=== PATIENT | male | born 1935 | race Caucasian/White ===

== ENCOUNTER 2016-07-09 08:00 | Outpatient (CLI) | payer MEDICARE, BC | END 2016-07-09 08:01 | disposition home or self-care (01) | DX: I63.9 Cerebral infarction, unspecified (principal); Z79.01 Long term (current) use of anticoagulants ==

== ENCOUNTER 2016-07-29 20:14 | Outpatient (CLI) | payer MEDICARE, BC | END 2016-07-29 20:15 | disposition home or self-care (01) | DX: D64.9 Anemia, unspecified (principal); I10 Essential (primary) hypertension; R53.83 Other fatigue ==

== ENCOUNTER 2016-08-06 15:32 | Outpatient (CLI) | payer MEDICARE, BC | END 2016-08-06 15:33 | disposition home or self-care (01) | DX: I63.9 Cerebral infarction, unspecified (principal) ==

== ENCOUNTER 2016-08-22 13:00 | Outpatient (CLI) | payer MEDICARE, BC | END 2016-08-22 23:59 | disposition home or self-care (01) | DX: I63.9 Cerebral infarction, unspecified (principal); Z51.81 Encounter for therapeutic drug level monitoring ==

== ENCOUNTER 2016-09-23 13:16 | Outpatient (CLI) | payer MEDICARE, BC | END 2016-09-23 13:17 | disposition home or self-care (01) | DX: I63.9 Cerebral infarction, unspecified (principal); Z51.81 Encounter for therapeutic drug level monitoring ==

== ENCOUNTER 2016-10-15 11:24 | Outpatient (CLI) | payer MEDICARE, BC | END 2016-10-15 11:25 | disposition home or self-care (01) | DX: I63.9 Cerebral infarction, unspecified (principal); Z51.81 Encounter for therapeutic drug level monitoring ==

== ENCOUNTER 2016-11-12 08:00 | Outpatient (CLI) | payer MEDICARE, BC | END 2016-11-12 08:01 | disposition home or self-care (01) | LOC: LAB.N 08:00 | PROVIDERS: ATTEND Family Medicine | DX: I63.9 Cerebral infarction, unspecified (principal); Z51.81 Encounter for therapeutic drug level monitoring | CPT/HCPCS: 85610 ==

== ENCOUNTER 2016-12-10 08:00 | Outpatient (CLI) | payer MEDICARE, BC | END 2016-12-10 08:01 | disposition home or self-care (01) | LOC: LAB.N 08:00 | PROVIDERS: ATTEND Family Medicine | DX: I63.9 Cerebral infarction, unspecified (principal); Z51.81 Encounter for therapeutic drug level monitoring | CPT/HCPCS: 85610 ==

== ENCOUNTER 2016-12-24 09:47 | Outpatient (CLI) | payer MEDICARE, BC | END 2016-12-24 09:48 | disposition home or self-care (01) | LOC: LAB.N 09:47 | PROVIDERS: ATTEND Family Medicine | DX: I63.9 Cerebral infarction, unspecified (principal) | CPT/HCPCS: 85610 ==

== ENCOUNTER 2017-01-21 09:50 | Outpatient (CLI) | payer MEDICARE, BC | END 2017-01-21 09:51 | disposition home or self-care (01) | LOC: LAB.N 09:50 | PROVIDERS: ATTEND Family Medicine | DX: I63.9 Cerebral infarction, unspecified (principal); Z51.81 Encounter for therapeutic drug level monitoring | CPT/HCPCS: 85610 ==

== ENCOUNTER 2017-02-21 08:00 | Outpatient (CLI) | payer MEDICARE, BC | END 2017-02-21 08:01 | disposition home or self-care (01) | LOC: LAB.N 08:00 | PROVIDERS: ATTEND Family Medicine | DX: I63.9 Cerebral infarction, unspecified (principal); Z51.81 Encounter for therapeutic drug level monitoring | CPT/HCPCS: 85610 ==

== ENCOUNTER 2017-03-10 10:13 | Outpatient (CLI) | payer MEDICARE, BC | END 2017-03-10 10:14 | disposition home or self-care (01) | LOC: LAB.N 10:13 | PROVIDERS: ATTEND Family Medicine | DX: I63.9 Cerebral infarction, unspecified (principal); Z51.81 Encounter for therapeutic drug level monitoring | CPT/HCPCS: 85610 ==

== ENCOUNTER 2017-04-04 10:00 | Outpatient (CLI) | payer MEDICARE, BC | END 2017-04-04 10:01 | disposition home or self-care (01) | LOC: LAB.N 10:00 | PROVIDERS: ATTEND Family Medicine | DX: I63.9 Cerebral infarction, unspecified (principal); Z51.81 Encounter for therapeutic drug level monitoring | CPT/HCPCS: 85610 ==

== ENCOUNTER 2017-05-19 10:00 | Outpatient (CLI) | payer MEDICARE, BC | END 2017-05-19 10:01 | disposition home or self-care (01) | LOC: LAB.N 10:00 | PROVIDERS: ATTEND Family Medicine | DX: I63.9 Cerebral infarction, unspecified (principal); Z51.81 Encounter for therapeutic drug level monitoring | CPT/HCPCS: 85610 ==

== ENCOUNTER 2017-06-17 08:00 | Outpatient (CLI) | payer MEDICARE, BC | END 2017-06-17 08:01 | disposition home or self-care (01) | LOC: LAB.N 08:00 | PROVIDERS: ATTEND Family Medicine | DX: I63.9 Cerebral infarction, unspecified (principal); Z51.81 Encounter for therapeutic drug level monitoring | CPT/HCPCS: 85610 ==

== ENCOUNTER 2017-07-15 09:49 | Outpatient (CLI) | payer MEDICARE, BC ==
[2017-07-15 12:49] LABS: PT - PROTHROMBIN TIME 21.8 secs (9.9-12.6)
[2017-07-15 12:58] LABS: BASOPHILS % (AUTO) 0.5 %; EOSINOPHILS # (AUTO) 0.1 10^3/uL (0.0-0.7); EOSINOPHILS % (AUTO) 2.4 %; HGB - HEMOGLOBIN 11.1 g/dL (14.0-18.0); LYMPHOCYTES # (AUTO) 0.6 10^3/uL (1.5-3.5); LYMPHOCYTES % (AUTO) 19.3 %; MEAN CORPUSCULAR HGB CONC 35.3 g/dL (32.0-36.0); MEAN CORPUSCULAR VOLUME 107.5 fL (80.0-94.0); MEAN PLATELET VOLUME 9.5 fL (7.4-11.4); MONOCYTES # (AUTO) 0.6 10^3/uL (0.0-1.0); MONOCYTES % (AUTO) 19.9 %; NEUTROPHILS # (AUTO) 1.7 10^3/uL (1.5-6.6); NEUTROPHILS % (AUTO) 57.9 %; PLT - PLATELET COUNT 120 10^3/uL (130-450); RED BLOOD COUNT 2.92 10^6/uL (4.70-6.10); RED CELL DISTRIBUTION WIDTH 13.5 % (12.0-15.0)
[2017-07-15 13:29] LABS: ALBUMIN 4.2 g/dL (3.2-5.5); ALBUMIN/GLOBULIN RATIO 1.8 (1.0-2.2); ALKALINE PHOSPHATASE 39 IU/L (42-121); ALT ALANINE AMINOTRANSFERASE 17 IU/L (10-60); AST ASPARTATE AMINOTRANSFERASE 24 IU/L (10-42); BILIRUBIN,TOTAL 0.8 mg/dL (0.2-1.0); BUN - BLOOD UREA NITROGEN 17 mg/dL (6-20); CALCIUM 9.1 mg/dL (8.5-10.3); CARBON DIOXIDE - CO2 22 mmol/L (21-32); CHLORIDE 106 mmol/L (101-111); CHOLESTEROL 117 mg/dL; CREATININE 1.5 mg/dL (0.6-1.2); GFR - MDRD 45 (>89); GLUCOSE 101 mg/dL (70-100); HDL CHOLESTEROL 39 mg/dL; LDL CHOLESTEROL,CALCULATED 48 mg/dL; LDL/HDL RATIO 1.2 (<3.6); SODIUM 133 mmol/L (135-145); TOTAL PROTEIN 6.5 g/dL (6.7-8.2); VLDL CHOLESTEROL 30 mg/dL
== END 2017-07-15 09:50 | disposition home or self-care (01) ==
LOC: LAB.N 09:49
PROVIDERS: ATTEND Family Medicine
DX: Z00.00 Encounter for general adult medical examination without abnormal findings (principal); I10 Essential (primary) hypertension; Z51.81 Encounter for therapeutic drug level monitoring; Z12.5 Encounter for screening for malignant neoplasm of prostate
CPT/HCPCS: 36415; 80053; 80061; 84443; 85025; 85610; G0103; 83721; 84153

== ENCOUNTER 2017-08-14 09:47 | Outpatient (CLI) | payer MEDICARE, BC | END 2017-08-14 09:48 | disposition home or self-care (01) | LOC: LAB.N 09:47 | PROVIDERS: ATTEND Family Medicine | DX: I63.9 Cerebral infarction, unspecified (principal); Z51.81 Encounter for therapeutic drug level monitoring | CPT/HCPCS: 85610 ==

== ENCOUNTER 2017-08-25 08:00 | Outpatient (CLI) | payer MEDICARE, BC | END 2017-08-25 23:59 | disposition home or self-care (01) | LOC: LAB.N 08:00 | PROVIDERS: ATTEND Family Medicine | DX: I63.9 Cerebral infarction, unspecified (principal); Z51.81 Encounter for therapeutic drug level monitoring | CPT/HCPCS: 85610 ==

== ENCOUNTER 2017-09-17 10:25 | Outpatient (CLI) | payer MEDICARE, BC ==
[2017-09-17 12:52] LABS: ABNORMAL LYMPHS % (MANUAL) 0 %
[2017-09-17 13:08] LABS: BASOPHILS % (AUTO) 0.5 %; EOSINOPHILS % (AUTO) 2.5 %; HGB - HEMOGLOBIN 10.6 g/dL (14.0-18.0); LYMPHOCYTES % (AUTO) 23.2 %; MEAN CORPUSCULAR HEMOGLOBIN 37.6 pg (27.0-31.0); MEAN CORPUSCULAR HGB CONC 35.1 g/dL (32.0-36.0); MEAN CORPUSCULAR VOLUME 107.1 fL (80.0-94.0); MEAN PLATELET VOLUME 9.9 fL (7.4-11.4); MONOCYTES % (AUTO) 20.1 %; NEUTROPHILS % (AUTO) 53.7 %; PLT - PLATELET COUNT 115 10^3/uL (130-450); RED BLOOD COUNT 2.82 10^6/uL (4.70-6.10); RED CELL DISTRIBUTION WIDTH 12.8 % (12.0-15.0); WHITE BLOOD COUNT 2.9 x10^3/uL (4.8-10.8)
[2017-09-17 13:35] LABS: BAND NEUTROPHILS % (MANUAL) 2 %; EOSINOPHILS # (MANUAL) 0.1 10^3/uL (0-0.7); LYMPHOCYTES # (MANUAL) 0.6 10^3/uL (1.5-3.5); LYMPHOCYTES % (MANUAL) 21 %; MONOCYTES # (MANUAL) 0.5 10^3/uL (0.0-1.0); NEUTROPHILS # (MANUAL) 1.7 10^3/uL (1.5-6.6); NEUTROPHILS % (MANUAL) 57 %
[2017-09-17 13:36] LABS: DIFFERENTIAL COMMENT MANUAL DIFFERENTIAL; PLATELET ESTIMATE, MANUAL DECREASED (<130,000) (NORMAL); PLATELET MORPHOLOGY NORMAL APPEARANCE (NORMAL); RBC MORPHOLOGY (MULTIPLE) 1+ MACROCYTOSIS (NORMAL)
== END 2017-09-17 10:26 | disposition home or self-care (01) ==
LOC: LAB.N 10:25
PROVIDERS: ATTEND Nurse Practitioner Family
DX: R63.4 Abnormal weight loss (principal); Z51.81 Encounter for therapeutic drug level monitoring
CPT/HCPCS: 36415; 85025

== ENCOUNTER 2017-09-24 10:34 | Outpatient (CLI) | payer MEDICARE, BC | END 2017-09-24 10:35 | disposition home or self-care (01) | LOC: LAB.N 10:34 | PROVIDERS: ATTEND Family Medicine | DX: I63.9 Cerebral infarction, unspecified (principal); Z51.81 Encounter for therapeutic drug level monitoring | CPT/HCPCS: 85610 ==

== ENCOUNTER 2017-10-10 10:08 | Outpatient (CLI) | payer MEDICARE, BC | END 2017-10-10 10:09 | disposition home or self-care (01) | LOC: LAB.N 10:08 | PROVIDERS: ATTEND Family Medicine | DX: I63.9 Cerebral infarction, unspecified (principal); Z51.81 Encounter for therapeutic drug level monitoring | CPT/HCPCS: 85610 ==

== ENCOUNTER 2017-11-03 08:00 | Outpatient (CLI) | payer MEDICARE, BC | END 2017-11-03 08:01 | LOC: LAB.N 08:00 | PROVIDERS: ATTEND Family Medicine | DX: I63.9 Cerebral infarction, unspecified (principal); Z51.81 Encounter for therapeutic drug level monitoring; Z79.01 Long term (current) use of anticoagulants | CPT/HCPCS: 85610 ==

== ENCOUNTER 2017-12-01 08:00 | Outpatient (CLI) | payer MEDICARE, BC | END 2017-12-01 08:01 | disposition home or self-care (01) | LOC: LAB.N 08:00 | PROVIDERS: ATTEND Family Medicine | DX: I63.9 Cerebral infarction, unspecified (principal); Z51.81 Encounter for therapeutic drug level monitoring; Z79.01 Long term (current) use of anticoagulants | CPT/HCPCS: 85610 ==

== ENCOUNTER 2017-12-08 09:37 | Outpatient (CLI) | END 2017-12-08 09:38 | disposition home or self-care (01) ==

== ENCOUNTER 2017-12-29 10:10 | Outpatient (CLI) | payer MEDICARE, BC | END 2017-12-29 10:11 | disposition home or self-care (01) | LOC: LAB.N 10:10 | PROVIDERS: ATTEND Family Medicine | DX: I63.9 Cerebral infarction, unspecified (principal); Z51.81 Encounter for therapeutic drug level monitoring; Z79.01 Long term (current) use of anticoagulants | CPT/HCPCS: 85610 ==

== ENCOUNTER 2018-01-02 09:55 | Outpatient (CLI) | payer MEDICARE, BC ==
[2018-01-02 14:00] LABS: BASOPHILS % (AUTO) 0.7 %; EOSINOPHILS # (AUTO) 0.1 10^3/uL (0.0-0.7); EOSINOPHILS % (AUTO) 4.4 %; HGB - HEMOGLOBIN 9.7 g/dL (14.0-18.0); LYMPHOCYTES # (AUTO) 0.7 10^3/uL (1.5-3.5); LYMPHOCYTES % (AUTO) 23.4 %; MEAN CORPUSCULAR HEMOGLOBIN 37.6 pg (27.0-31.0); MEAN CORPUSCULAR HGB CONC 34.5 g/dL (32.0-36.0); MEAN CORPUSCULAR VOLUME 108.9 fL (80.0-94.0); MEAN PLATELET VOLUME 9.7 fL (7.4-11.4); MONOCYTES # (AUTO) 0.6 10^3/uL (0.0-1.0); MONOCYTES % (AUTO) 22.1 %; NEUTROPHILS # (AUTO) 1.4 10^3/uL (1.5-6.6); NEUTROPHILS % (AUTO) 49.4 %; PLT - PLATELET COUNT 124 10^3/uL (130-450); RED BLOOD COUNT 2.58 10^6/uL (4.70-6.10); WHITE BLOOD COUNT 2.8 x10^3/uL (4.8-10.8)
[2018-01-02 14:07] LABS: ALBUMIN 3.9 g/dL (3.2-5.5); ALBUMIN/GLOBULIN RATIO 1.5 (1.0-2.2); BILIRUBIN,TOTAL 0.9 mg/dL (0.2-1.0); CREATININE 3.1 mg/dL (0.6-1.2); TOTAL PROTEIN 6.5 g/dL (6.7-8.2)
[2018-01-02 14:31] LABS: PLATELET ESTIMATE, MANUAL DECREASED (<130,000) (NORMAL); PLATELET MORPHOLOGY RARE GIANT PLATELETS (NORMAL)
== END 2018-01-02 09:56 | disposition home or self-care (01) ==
LOC: LAB.N 09:55
DX: D72.819 Decreased white blood cell count, unspecified (principal)
CPT/HCPCS: 36415; 80053; 83615; 85025

== ENCOUNTER 2018-01-09 09:40 | Outpatient (CLI) | payer MEDICARE, BC ==
[2018-01-09 12:56] LABS: BASOPHILS % (AUTO) 0.8 %; EOSINOPHILS # (AUTO) 0.1 10^3/uL (0.0-0.7); EOSINOPHILS % (AUTO) 3.7 %; HGB - HEMOGLOBIN 9.5 g/dL (14.0-18.0); LYMPHOCYTES # (AUTO) 0.8 10^3/uL (1.5-3.5); MEAN CORPUSCULAR HEMOGLOBIN 37.6 pg (27.0-31.0); MEAN CORPUSCULAR HGB CONC 34.3 g/dL (32.0-36.0); MEAN CORPUSCULAR VOLUME 109.8 fL (80.0-94.0); MEAN PLATELET VOLUME 9.5 fL (7.4-11.4); MONOCYTES # (AUTO) 0.5 10^3/uL (0.0-1.0); MONOCYTES % (AUTO) 17.4 %; NEUTROPHILS # (AUTO) 1.6 10^3/uL (1.5-6.6); NEUTROPHILS % (AUTO) 52.1 %; PLT - PLATELET COUNT 111 10^3/uL (130-450); RED BLOOD COUNT 2.53 10^6/uL (4.70-6.10); RED CELL DISTRIBUTION WIDTH 13.8 % (12.0-15.0)
[2018-01-09 13:25] LABS: FERRITIN 627.9 ng/mL (23.9-336.2)
[2018-01-09 13:35] LABS: CREATININE 3.1 mg/dL (0.6-1.2)
== END 2018-01-09 09:41 | disposition home or self-care (01) ==
LOC: LAB.N 09:40
PROVIDERS: ATTEND Internal Medicine Hematology & Oncology
DX: D72.819 Decreased white blood cell count, unspecified (principal); D47.3 Essential (hemorrhagic) thrombocythemia; D53.9 Nutritional anemia, unspecified
CPT/HCPCS: 36415; 80048; 82607; 82728; 83540; 84466; 85025

== ENCOUNTER 2018-01-26 09:51 | Outpatient (CLI) | payer MEDICARE, BC | END 2018-01-26 09:52 | disposition home or self-care (01) | LOC: LAB.N 09:51 | PROVIDERS: ATTEND Family Medicine | DX: I63.9 Cerebral infarction, unspecified (principal); Z51.81 Encounter for therapeutic drug level monitoring; Z79.01 Long term (current) use of anticoagulants | CPT/HCPCS: 85610 ==

== ENCOUNTER → 2018-02-12 | Outpatient (CLI) | payer MEDICARE, BC | LOC: LAB.N 08:00 | PROVIDERS: ATTEND Family Medicine | DX: Z53.9 Procedure and treatment not carried out, unspecified reason (principal) | CPT/HCPCS: 85610 ==

== ENCOUNTER 2018-02-13 10:45 | Outpatient (CLI) | payer MEDICARE, BC ==
[2018-02-13 12:28] LABS: BASOPHILS % (AUTO) 0.7 %; EOSINOPHILS # (AUTO) 0.1 10^3/uL (0.0-0.7); EOSINOPHILS % (AUTO) 3.3 %; HGB - HEMOGLOBIN 10.1 g/dL (14.0-18.0); LYMPHOCYTES # (AUTO) 0.7 10^3/uL (1.5-3.5); LYMPHOCYTES % (AUTO) 24.4 %; MEAN CORPUSCULAR HEMOGLOBIN 38.6 pg (27.0-31.0); MEAN CORPUSCULAR HGB CONC 35.3 g/dL (32.0-36.0); MEAN CORPUSCULAR VOLUME 109.5 fL (80.0-94.0); MEAN PLATELET VOLUME 9.5 fL (7.4-11.4); MONOCYTES # (AUTO) 0.6 10^3/uL (0.0-1.0); MONOCYTES % (AUTO) 20.4 %; NEUTROPHILS # (AUTO) 1.6 10^3/uL (1.5-6.6); NEUTROPHILS % (AUTO) 51.2 %; PLT - PLATELET COUNT 130 10^3/uL (130-450); RED BLOOD COUNT 2.61 10^6/uL (4.70-6.10); RED CELL DISTRIBUTION WIDTH 13.8 % (12.0-15.0)
== END 2018-02-13 10:46 | disposition home or self-care (01) ==
LOC: LAB.N 10:45
PROVIDERS: ATTEND Internal Medicine Hematology & Oncology
DX: D53.9 Nutritional anemia, unspecified (principal); D72.819 Decreased white blood cell count, unspecified; D47.3 Essential (hemorrhagic) thrombocythemia
CPT/HCPCS: 36415; 85025

== ENCOUNTER 2018-03-02 09:51 | Outpatient (CLI) | payer MEDICARE, BC | END 2018-03-02 09:52 | disposition home or self-care (01) | LOC: LAB.N 09:51 | PROVIDERS: ATTEND Family Medicine | DX: I63.9 Cerebral infarction, unspecified (principal); Z51.81 Encounter for therapeutic drug level monitoring; Z79.01 Long term (current) use of anticoagulants | CPT/HCPCS: 85610 ==

== ENCOUNTER 2018-03-05 08:00 | Outpatient (CLI) | payer MEDICARE, BC | END 2018-03-05 08:01 | disposition home or self-care (01) | LOC: LAB.N 08:00 | PROVIDERS: ATTEND Family Medicine | DX: Z51.81 Encounter for therapeutic drug level monitoring (principal); Z79.01 Long term (current) use of anticoagulants | CPT/HCPCS: 85610 ==

== ENCOUNTER 2018-03-16 08:00 | Outpatient (CLI) | payer MEDICARE, BC ==
[2018-03-16 19:09] LABS: BASOPHILS % (AUTO) 0.8 %; EOSINOPHILS # (AUTO) 0.1 10^3/uL (0.0-0.7); EOSINOPHILS % (AUTO) 3.5 %; HGB - HEMOGLOBIN 9.9 g/dL (14.0-18.0); LYMPHOCYTES # (AUTO) 0.5 10^3/uL (1.5-3.5); LYMPHOCYTES % (AUTO) 16.2 %; MEAN CORPUSCULAR HEMOGLOBIN 38.4 pg (27.0-31.0); MEAN CORPUSCULAR HGB CONC 33.9 g/dL (32.0-36.0); MEAN CORPUSCULAR VOLUME 113.5 fL (80.0-94.0); MEAN PLATELET VOLUME 10.3 fL (7.4-11.4); MONOCYTES # (AUTO) 0.5 10^3/uL (0.0-1.0); NEUTROPHILS % (AUTO) 62.5 %; PLT - PLATELET COUNT 118 10^3/uL (130-450); RED BLOOD COUNT 2.59 10^6/uL (4.70-6.10); RED CELL DISTRIBUTION WIDTH 15.4 % (12.0-15.0); WHITE BLOOD COUNT 3.1 x10^3/uL (4.8-10.8)
[2018-03-16 19:21] LABS: CALCIUM 9.3 mg/dL (8.5-10.3); CREATININE 3.2 mg/dL (0.6-1.2)
[2018-03-16 19:38] LABS: PLATELET ESTIMATE, MANUAL DECREASED (<130,000) (NORMAL); PLATELET MORPHOLOGY NORMAL APPEARANCE (NORMAL); RBC MORPHOLOGY (MULTIPLE) 4+ MACROCYTOSIS (NORMAL)
[2018-03-16 19:51] LABS: CREATININE,URINE 182.2 mg/dL; PROTEIN/CREATININE RATIO,URINE 0.1 (<=0.2)
== END 2018-03-16 08:01 | disposition home or self-care (01) ==
LOC: LAB.N 08:00
PROVIDERS: ATTEND Internal Medicine Nephrology
DX: D72.819 Decreased white blood cell count, unspecified (principal); D47.3 Essential (hemorrhagic) thrombocythemia; D53.9 Nutritional anemia, unspecified; N05.9 Unspecified nephritic syndrome with unspecified morphologic changes; R80.9 Proteinuria, unspecified
CPT/HCPCS: 36415; 80048; 82570; 84156; 85025

== ENCOUNTER 2018-03-19 14:15 | Outpatient (CLI) | payer MEDICARE, BC | END 2018-03-19 14:16 | disposition short-term general hospital (02) | LOC: EMS 14:15 | PROVIDERS: ATTEND Surgery | DX: R53.1 Weakness (principal); R06.00 Dyspnea, unspecified | CPT/HCPCS: A0425; A0427 ==

== ENCOUNTER 2018-04-02 00:47 | Emergency (ER) | payer MEDICARE, BC ==
--- NOTE | 2018-04-02 01:08 | ED Physician Documentation ---
PD HPI ABD PAIN - Stated complaint Stated Complaint: ABD PX - Chief complaint Chief Complaint: Abd Pain - History obtained from History obtained from: Patient - History of Present Illness Timing - onset: How many hours ago (5-6), Today Timing - duration: Hours Timing - details: Gradual onset (shortly after eating dinner, had onset of upper abd pain and nausea. Vomited couple times. Still with upper abd pain and cramping.), Still present, Waxing and waning Quality: Cramping, Aching, Pain Location: Epigastric Radiation: No: Chest, Lower back, Left shoulder Improved by: Laying still Worsened by: Palpation. No: Moving, Breathing Associated symptoms: Nausea. No: Fever, Vomiting, Diarrhea, Dysuria Similar symptoms before: Diagnosis (cholecystitis acute with ductal blockage, seen in [facility].) Recently seen: Admitted, Surgery (had biliary stent placed about 10 days ago in [facility]. He says he was there 5-6 days and discharged 6 days ago with biliary stent and was doing okay.), Other (he states he is not on blood thinners since recent admission.) Review of Systems Constitutional: denies: Fever, Chills, Myalgias Nose: denies: Rhinorrhea / runny nose, Congestion Throat: denies: Sore throat Cardiac: denies: Chest pain / pressure, Palpitations Respiratory: denies: Dyspnea, Cough GI: reports: Abdominal Pain, Nausea, Diarrhea (loose stools after hospitalization, but improving). 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) Neurologic: denies: Altered mental status, Headache PD PAST MEDICAL HISTORY - Past Medical History Cardiovascular: Hypertension Respiratory: None Endocrine/Autoimmune: None GI: Colon polyps, Cholelithiasis : Nocturia HEENT: Chronic hearing loss Psych: None Musculoskeletal: Osteoarthritis, Chronic back pain, Other Derm: None - Past Surgical History General: Appendectomy, Other (biliary duct stent for ductal blockage about 10 days ago) Ortho: Carpal Tunnel surgery Neuro: Other HEENT: Cataracts, Tonsil/Adenoidectomy - Present Medications Home Medications: Ambulatory Orders Medication Instructions Recorded Confirmed Doxazosin [Cardura] 4 mg PO DAILY 10/05/15 10/05/15 Lisinopril 40 mg PO BID 10/05/15 10/05/15 Metoprolol Tartrate 100 mg PO BID 10/05/15 10/05/15 Warfarin [Coumadin] 2.5 mg PO 1400 10/05/15 10/05/15 Warfarin [Coumadin] 5 mg PO 1400 10/05/15 10/05/15 amLODIPine [Norvasc] 10 mg PO DAILY 10/05/15 10/05/15 Famotidine [Pepcid] 20 mg PO ONCE #30 tablet 04/02/18 Lidocaine Viscous 2% [Xylocaine 5 ml PO Q4H PRN #1 bottle 04/02/18 Viscous 2%] Ondansetron HCl [Zofran] 4 mg PO Q6H PRN #20 tablet 04/02/18 - Allergies Allergies/Adverse Reactions: Allergies Allergy/AdvReac Type Severity Reaction Status Date / Time Penicillins AdvReac Nausea Verified 04/02/18 01:03 PD ED PE NORMAL - Vitals Vital signs reviewed: Yes - General General: Alert and oriented X 3, Well developed/nourished, Other (appears uncomfortable) - HEENT HEENT: PERRL (nonicteric), Moist mucous membranes, Pharynx benign - Neck Neck: Supple, no meningeal sign, No adenopathy - Cardiac Cardiac: RRR, No murmur - Respiratory Respiratory: Clear bilaterally - Abdomen Abdomen: Normal bowel sounds, Soft, Non distended, No organomegaly, Other (tender without percussion nor rebound in epigastric area. ) - Male Male : Deferred - Rectal Rectal: Other (soft stool; guiac negative) - Back Back: No CVA TTP - Derm Derm: Normal color, Warm and dry - Extremities Extremities: No deformity, Normal ROM s pain, No calf tenderness / cord, Other (1+ edema in both legs, slightly more on right) - Neuro Neuro: Alert and oriented X 3, No motor deficit, Normal speech Results - Vitals Vitals: Vital Signs - 24 hr 04/02/18 04/02/18 00:50 01:25 Temperature 36.3 C L Heart Rate 96 86 Respiratory 17 20 Rate Blood Pressure 149/71 H 132/57 H O2 Saturation 100 100 Oxygen O2 Source Room air - EKG (time done) 01:05 Rate: Rate (enter#) (84) Rhythm: NSR (baseline artifact so machine reads atrial fib, but I can see P waves in some leads)) Intervals: Normal ME QRS: Normal Ischemia: Normal ST segments. No: ST elevation c/w ischemia, ST depression Computer interpretation: Disagree with computer - Labs Labs: Laboratory Tests 04/02/18 04/02/18 01:40 01:40 WBC 4.0 L RBC 2.09 L Hgb 7.1 L Hct 20.2 L MCV 96.6 H MCH 33.8 H MCHC 35.0 RDW 18.8 H Plt Count 129 L MPV 9.0 Neut # (Auto) 3.0 Lymph # (Auto) 0.3 L Brule # (Auto) 0.6 Eos # (Auto) 0.1 Baso # (Auto) 0.0 Absolute Nucleated RBC 0.01 Nucleated RBC % 0.4 Sodium 136 Potassium 4.0 Chloride 106 Carbon Dioxide 22 Anion Gap 8.0 BUN 20 Creatinine 2.0 H Estimated GFR (MDRD) 32 L Glucose 129 H Calcium 9.0 Total Bilirubin 1.9 H AST 32 ALT 41 Alkaline Phosphatase 92 Total Protein 6.0 L Albumin 3.5 Globulin 2.5 Albumin/Globulin Ratio 1.4 Lipase 70 H - Rads (name of study) abd CT Radiology: Prelim report reviewed (Common bile duct stent appears patent. There is some inflammation of the gallbladder with stones. No other acute abnormality noted. There is a small infrarenal aortic aneurysm at 3 cm.) PD MEDICAL DECISION MAKING - ED course Complexity details: reviewed results, re-evaluated patient (feeling much better and pain is gone at this time. Recheck abd not tender. ), considered differential, d/w patient Departure - Departure Disposition: 01 Home, Self Care Clinical Impression: Abdominal pain Qualifiers: Abdominal location: epigastric Qualified Code(s): R10.13 - Epigastric pain Condition: Stable Record reviewed to determine appropriate education?: Yes Instructions: ED Abdominal Pain Unkn Cause Follow-Up: Bulmaro Kaiser MD [Primary Care Provider] - Prescriptions: Famotidine [Pepcid] 20 mg PO ONCE #30 tablet Lidocaine Viscous 2% [Xylocaine Viscous 2%] 5 ml PO Q4H PRN #1 bottle PRN Reason: Pain Ondansetron HCl [Zofran] 4 mg PO Q6H PRN #20 tablet PRN Reason: Nausea / Vomiting Comments: Your common bile duct stent appears to be draining well. There is some inflammation of the gallbladder which would be consistent with the prior recent history. There is no signs of pancreas or liver abnormality on the CT scan or blood tests. You are anemic on blood test. I presume your pain today was from stomach irritation (gastritis). I would have you take some acid reducing medicine famotidine daily for the next 2-3 weeks. Acutely for pain you can use lidocaine orally with some antacid as needed. Ondansetron if needed for nausea. Follow-up with your primary care later today as planned. Use the hydrocodone tablets every 4-6 hours if needed for pain.
[2018-04-02] MEDS ORDERED: MORPHINE 10 MG/ML VIAL IVP STA (01:32)
[2018-04-02] MEDS ORDERED: ONDANSETRON 4 MG/2 ML VIAL IVP STA (01:32)
[2018-04-02] MEDS ORDERED: SODIUM CHLORIDE 0.9% 1,000 ML IV ONE (01:32)
[2018-04-02] MEDS ORDERED: KETOROLAC 15 MG/ML VIAL IVP STA (01:33)
[2018-04-02] MEDS ORDERED: MAG HYDROX/AL HYDROX/SIMETH 30 ML UDC PO STA (01:33)
[2018-04-02] MEDS ORDERED: LIDOCAINE VISCOUS 2% 15 ML UDC MM STA (01:33)
[2018-04-02 01:51] LABS: BASOPHILS % (AUTO) 0.7 %; EOSINOPHILS # (AUTO) 0.1 10^3/uL (0.0-0.7); EOSINOPHILS % (AUTO) 1.5 %; HGB - HEMOGLOBIN 7.1 g/dL (14.0-18.0); LYMPHOCYTES # (AUTO) 0.3 10^3/uL (1.5-3.5); LYMPHOCYTES % (AUTO) 8.1 %; MEAN CORPUSCULAR HEMOGLOBIN 33.8 pg (27.0-31.0); MEAN CORPUSCULAR VOLUME 96.6 fL (80.0-94.0); MONOCYTES # (AUTO) 0.6 10^3/uL (0.0-1.0); MONOCYTES % (AUTO) 14.9 %; NEUTROPHILS % (AUTO) 74.8 %; PLT - PLATELET COUNT 129 10^3/uL (130-450); RED BLOOD COUNT 2.09 10^6/uL (4.70-6.10); RED CELL DISTRIBUTION WIDTH 18.8 % (12.0-15.0)
[2018-04-02 02:03] LABS: ALBUMIN 3.5 g/dL (3.2-5.5); ALBUMIN/GLOBULIN RATIO 1.4 (1.0-2.2); BILIRUBIN,TOTAL 1.9 mg/dL (0.2-1.0)
[2018-04-02] MEDS ORDERED: IOPAMIDOL-300 100 ML VIAL ONE (03:10)
[2018-04-02] MEDS ORDERED: IOPAMIDOL-300 100 ML VIAL IVP ONE (03:16)
--- NOTE | 2018-04-02 03:34 | CT Report ---
Reason: upper abd pain tonight; CBD stent about 10 days ag Procedure Date: 04/02/2018 Accession Number: [id number] / [id number] Procedure: CT - Abdomen/Pelvis W/ CPT Code: FULL RESULT: EXAM: CT ABDOMEN AND PELVIS EXAM DATE: 04/02/2018 03:22 AM. CLINICAL HISTORY: Upper abdominal pain tonight; common bile duct stent about 10 days ago. COMPARISONS: None. TECHNIQUE: Routine helical CT imaging was performed through the abdomen and pelvis. IV contrast: Yes. Enteric contrast: No. Reconstructions: Coronal and sagittal. In accordance with CT protocol optimization, one or more of the following dose reduction techniques were utilized for this exam: automated exposure control, adjustment of mA and/or KV based on patient size, or use of iterative reconstructive technique. FINDINGS: Lung Bases: Coronary calcifications. Liver: Small probable cysts. No suspicious masses. Gallbladder/Bile Ducts: Distended gallbladder with multiple stones in the neck and cystic duct. Mild gallbladder wall thickening and pericholecystic inflammation. Common bile duct stent in place with pneumobilia, consistent with stent patency. Spleen: Mildly to moderately enlarged with scattered tiny hypodense foci, statistically benign. Pancreas: Unremarkable. Adrenal Glands: Unremarkable. Kidneys: Right renal cyst. No suspicious masses or hydronephrosis. Peritoneal Cavity/Bowel: No bowel obstruction or inflammatory process seen. No free air or significant free fluid. No masses or adenopathy. The appendix is normal. No excessive stool burden. Pelvic Organs: Bladder and prostate appear unremarkable. Vasculature: Moderate atherosclerotic disease of the aorta and branches. Mild aneurysmal dilatation of the infrarenal abdominal aorta up to 30 x 30 mm. Bones: No significant abnormality. Other: Small fat-containing inguinal hernias without apparent complication. IMPRESSION: 1. Acute cholecystitis. 2. Common bile duct stent patency. 3. Mild to moderate splenomegaly. 4. Moderate atherosclerotic disease of the aorta and branches. 5. Mild aneurysmal dilatation of the infrarenal abdominal aorta up to 30 x 30 mm. RADIA
[2018-04-02] MEDS ORDERED: ONDANSETRON ODT 4 MG Prepack 2 TL PRN (04:02)
[2018-04-02] MEDS ORDERED: HYDROcod/ACET 5/325 Prepack 4 PO STA (04:02)
[2018-04-02 05:22] VITALS: BP 119/59
[2018-04-05] MEDS ORDERED: SODIUM CHLORIDE FLUSH 0.9% 10 ML SYRINGE ONE (15:26)
== END 2018-04-02 04:42 | disposition home or self-care (01) ==
LOC: ED 00:47
DX: R10.13 Epigastric pain (principal); R11.2 Nausea with vomiting, unspecified; I48.91 Unspecified atrial fibrillation; I10 Essential (primary) hypertension; K80.10 Calculus of gallbladder with chronic cholecystitis without obstruction; Z96.89 Presence of other specified functional implants; Z79.01 Long term (current) use of anticoagulants
CPT/HCPCS: 36415; 74177; 80053; 83690; 85025; 93005; 96374; 96375; 99283; A9270; Q9967

== ENCOUNTER 2018-04-05 09:35 | Outpatient (CLI) | payer MEDICARE, BC | END 2018-04-05 09:36 | disposition critical access hospital (66) | LOC: EMS 09:35 | PROVIDERS: ATTEND Surgery | DX: R53.1 Weakness (principal); R25.1 Tremor, unspecified; R50.9 Fever, unspecified | CPT/HCPCS: A0425; A0429 ==

== ENCOUNTER 2018-04-05 10:00 | Inpatient (IN) | payer MEDICARE, BC ==
[2018-04-05] MEDS ORDERED: SODIUM CHLORIDE 0.9% 1,000 ML IV ONE ×3 (10:12→23:35)
[2018-04-05] MEDS ORDERED: ERTAPENEM 1 GM in SODIUM CHLORIDE 0.9% MINIBAG 100 ML IV STA (10:16)
[2018-04-05] MEDS ORDERED: metroNIDAZOLE 500 MG/100 ML 500 MG/100 ML BAG IV ONE (10:16)
--- NOTE | 2018-04-05 10:19 | ED Physician Documentation ---
History of Present Illness - Stated complaint Stated Complaint: FEVER - Chief complaint Chief Complaint: Fever - Additonal information Additional information: hx from pt 82 male s/p appy per EMS report pt recently dx with pancreatic cancer also paperwork indicates new dx CHF had biliary stent placed at Prov to ED today for fever and shaking chills since 7 AM nausea no vomit or diarrhea denies HER CP AP any pain at all no urinary sx profoundly weak Review of Systems Constitutional: reports: Fever, Chills, Fatigue, Sweats Cardiac: denies: Chest pain / pressure Respiratory: denies: Dyspnea, Cough GI: reports: Nausea. denies: Abdominal Pain, Vomiting, Diarrhea : denies: Dysuria, Hematuria Neurologic: reports: Generalized weakness Endocrine: reports: Easy bruising / bleeding Immunocompromised: denies: Immunocompromised PD PAST MEDICAL HISTORY - Past Medical History Cardiovascular: Hypertension Respiratory: None Endocrine/Autoimmune: None GI: Colon polyps, Cholelithiasis : Nocturia HEENT: Chronic hearing loss Psych: None Musculoskeletal: Osteoarthritis, Chronic back pain, Other Derm: None - Past Surgical History General: Appendectomy, Other (biliary duct stent for ductal blockage about 10 days ago) Ortho: Carpal Tunnel surgery Neuro: Other HEENT: Cataracts, Tonsil/Adenoidectomy - Present Medications Home Medications: Ambulatory Orders Medication Instructions Recorded Confirmed Metoprolol Tartrate 100 mg PO BID 10/05/15 04/05/18 Ondansetron HCl [Zofran] 4 mg PO Q6H PRN #20 tablet 04/02/18 Hydrocodone/Acetaminophen 04/05/18 [Hydrocodone-Acetamin 5-325 mg] Pantoprazole Sodium [Protonix] 40 mg PO BID 04/05/18 04/05/18 Tamsulosin HCl [Flomax] 0.4 mg PO DAILY 04/05/18 04/05/18 - Allergies Allergies/Adverse Reactions: Allergies Allergy/AdvReac Type Severity Reaction Status Date / Time Penicillins AdvReac Nausea Verified 04/05/18 10:10 PD ED PE NORMAL - Vitals Vital signs reviewed: Yes (tachy borderline BP) - General General: Alert and oriented X 3, Other (pale weak, 2-3 person assist to stand an d transfer) - HEENT HEENT: PERRL - Neck Neck: Supple, no meningeal sign - Cardiac Cardiac: RRR (tachy) - Respiratory Respiratory: No respiratory distress, Clear bilaterally - Abdomen Abdomen: Normal bowel sounds, Other (distended, TTP RUQ s peritoneal sx) - Derm Derm: Other (pale but not jaundiced, no open wounds seen) - Neuro Neuro: Alert and oriented X 3, Other (all over weak) Results - Vitals Vitals: Vital Signs - 24 hr 04/05/18 04/05/18 04/05/18 10:06 10:30 11:00 Temperature 37.6 C H Heart Rate 130 H 126 H 120 H Respiratory 18 25 H 21 Rate Blood Pressure 108/44 L 108/44 L 91/45 L O2 Saturation 100 99 97 04/05/18 04/05/18 04/05/18 12:51 13:01 13:06 Temperature 37.4 C 37.1 C Heart Rate 114 H 113 H 112 H Respiratory 28 H 28 H Rate Blood Pressure 72/60 L 75/49 L 80/50 L O2 Saturation 96 04/05/18 04/05/18 04/05/18 13:12 13:13 13:17 Temperature 98.1 C H 98.1 C H Heart Rate 112 H 112 H 113 H Respiratory 27 H 27 H 27 H Rate Blood Pressure 81/51 L 81/51 L 80/49 L O2 Saturation 100 04/05/18 04/05/18 04/05/18 13:35 13:44 14:00 Temperature 98.6 C H 98.5 C H Heart Rate 115 H 113 H 118 H Respiratory 25 H 24 26 H Rate Blood Pressure 79/53 L 88/53 L 91/55 L O2 Saturation 100 04/05/18 14:13 Temperature Heart Rate 118 H Respiratory 26 H Rate Blood Pressure 91/53 L O2 Saturation 99 Oxygen O2 Source Room air - Labs Labs: Laboratory Tests 04/05/18 04/05/18 04/05/18 10:24 10:24 10:24 WBC 3.5 L RBC 2.06 L Hgb 6.9 L* Hct 20.3 L MCV 98.4 H MCH 33.2 H MCHC 33.8 RDW 19.0 H Plt Count 115 L MPV 10.1 Neut # (Auto) 3.4 Lymph # (Auto) 0.1 L Victoria # (Auto) 0.1 Eos # (Auto) 0.0 Baso # (Auto) 0.0 Absolute Nucleated RBC 0.02 Nucleated RBC % 0.5 Manual Slide Review Indicated Platelet Morphology RARE GIANT PLATELETS RBC Morph Micro Appear 3+ ANISOCYTOSIS PT INR Sodium 135 Potassium 4.5 Chloride 104 Carbon Dioxide 16 L Anion Gap 15.0 H BUN 36 H Creatinine 3.3 H Estimated GFR (MDRD) 18 L Glucose 139 H Lactic Acid 5.5 H* Calcium 9.1 Total Bilirubin 2.3 H AST 53 H ALT 29 Alkaline Phosphatase 144 H Total Protein 6.4 L Albumin 2.9 L Globulin 3.5 Albumin/Globulin Ratio 0.8 L Lipase 57 H Urine Color Urine Clarity Urine pH Ur Specific [place] Urine Protein Urine Glucose (UA) Urine Ketones Urine Occult Blood Urine Nitrite Urine Bilirubin Urine Urobilinogen Ur Leukocyte Esterase Urine RBC Urine WBC Ur Squamous Epith Cells Urine Bacteria Urine Casts Ur Microscopic Review Urine Culture Comments Blood Type Blood Type Recheck Antibody Screen Crossmatch IS Only 04/05/18 04/05/18 04/05/18 10:44 11:38 11:40 WBC RBC Hgb Hct MCV MCH MCHC RDW Plt Count MPV Neut # (Auto) Lymph # (Auto) Victoria # (Auto) Eos # (Auto) Baso # (Auto) Absolute Nucleated RBC Nucleated RBC % Manual Slide Review Platelet Morphology RBC Morph Micro Appear PT 16.4 H INR 1.5 H Sodium Potassium Chloride Carbon Dioxide Anion Gap BUN Creatinine Estimated GFR (MDRD) Glucose Lactic Acid Calcium Total Bilirubin AST ALT Alkaline Phosphatase Total Protein Albumin Globulin Albumin/Globulin Ratio Lipase Urine Color DARK YELLOW Urine Clarity HAZY Urine pH 5.0 Ur Specific [place] 1.025 Urine Protein 30 H Urine Glucose (UA) NEGATIVE Urine Ketones NEGATIVE Urine Occult Blood NEGATIVE Urine Nitrite NEGATIVE Urine Bilirubin NEGATIVE Urine Urobilinogen 1 (NORMAL) Ur Leukocyte Esterase TRACE H Urine RBC 0-5 Urine WBC 6-10 H Ur Squamous Epith Cells FEW Squamous Urine Bacteria Few Urine Casts 6-10 Granular Casts Ur Microscopic Review INDICATED Urine Culture Comments INDICATED Blood Type A POSITIVE Blood Type Recheck Antibody Screen NEGATIVE Crossmatch IS Only See Detail 04/05/18 04/05/18 04/05/18 11:40 13:02 13:58 WBC RBC Hgb Hct MCV MCH MCHC RDW Plt Count MPV Neut # (Auto) Lymph # (Auto) Victoria # (Auto) Eos # (Auto) Baso # (Auto) Absolute Nucleated RBC Nucleated RBC % Manual Slide Review Platelet Morphology RBC Morph Micro Appear PT INR Sodium Potassium Chloride Carbon Dioxide Anion Gap BUN Creatinine Estimated GFR (MDRD) Glucose Lactic Acid 2.8 H Calcium Total Bilirubin AST ALT Alkaline Phosphatase Total Protein Albumin Globulin Albumin/Globulin Ratio Lipase Urine Color Urine Clarity Urine pH Ur Specific [place] Urine Protein Urine Glucose (UA) Urine Ketones Urine Occult Blood Urine Nitrite Urine Bilirubin Urine Urobilinogen Ur Leukocyte Esterase Urine RBC Urine WBC Ur Squamous Epith Cells Urine Bacteria Urine Casts Ur Microscopic Review Urine Culture Comments Blood Type Cancelled Blood Type Recheck A POSITIVE Antibody Screen Cancelled Crossmatch IS Only See Detail - Rads (name of study) CXR Radiology: See rad report (hypovent with R basilar consolidation) CTAP Radiology: See rad report (acute yunior (cholelithiasis and amrked GB distension with pericholecystic edema racking to RLQ), CBD stent and pneumobilia, diverticulosis no -itis, splenomegaly) PD MEDICAL DECISION MAKING - ED course ED course: presentation c/w sepsis 2/2 cholecystitis/cholangitis pt given broad spectrum GI ab and 1 L NS (not 30cc/L given hx of CHF and not being hypotensive) anemia noted 2 days ago as well - pt had rectal exam and was occult blood neg CT confirms acute yunior requested records from [facility] upon pt arrival at 1010 AM - received records from [facility] at 1140 - pt had an angiodysplasia of the stomach and duodenum dx and txed by EGD 03/20 with bleeding and subsequent anemia, he had hgb 6 was transfused, coumadin was reversed and stopped he also had a mass in head of the pancreas and FNB was performed and 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, a sphincheterectomy was done and stent placed per dc summary dc INR was 1.3, hct 21, cr 1.9, bili 2.5, also pt was made DNR - we called and POLST available to fax to us - daughter in law states it is at home on the fridge and does say DNR despite hct approx same as dc from prov and IVF and that pt was given broad spectrum ab pt is decompensating and his pressure is dropping two large bore IV more fluids transfused when sons arrive will need to discuss plan of attack and if going to pursue pressors and aggressive intervention then will place central line pt slightly improved with above interventions family daughter in law has arrived she states he does not have CHF that she is aware of despite it being in his home health chart so giving more aggressive fluids I explained pt/family have 3 options 1) transfer to solely comfort care 2) IV antibiotics fluids and blood transfusions which can be done at [facility] 3) transfer to [facility] for possible surgical intervention such as another therapeutic EGD for angiodysplasia and yunior or percut GB tx by IR she is trying to get a hold of pts sons to decide for now she would like him to get antibiotics and fluids and blood and not be transferred I have explained to her that he is critically ill and may today and that family should come as soon as possible kristofer valles hospitalist at 1300 spoke to hospitalist at 1410 will admit daughter and pt clearly understand no surgical interventional procedures are available for this pt at [facility] - just fluids blood and antibiotics - Sepsis Event Current Stage of Sepsis: Septic shock Persistent Hypotension: MAP less than 65 mmHg Possible source of Sepsis: GI tract/intra-abdominal Mental/Cognitive Status: Confused Reason for not giving 30ml/kg crystalloid fluids: Patient has heart failure (turns out to be inaccurate so gave more fluids, also blood for acute blood loss) Departure - Departure Disposition: 66 [facility] DC/Xfer Clinical Impression: Septic shock Condition: Critical
[2018-04-05] MEDS ORDERED: SODIUM CHLORIDE 0.9% MINIBAG 100 ML IV ONE (10:27)
[2018-04-05 10:42] LABS: BASOPHILS % (AUTO) 0.4 %; LYMPHOCYTES # (AUTO) 0.1 10^3/uL (1.5-3.5); LYMPHOCYTES % (AUTO) 2.5 %; MEAN CORPUSCULAR HEMOGLOBIN 33.2 pg (27.0-31.0); MEAN CORPUSCULAR HGB CONC 33.8 g/dL (32.0-36.0); MEAN CORPUSCULAR VOLUME 98.4 fL (80.0-94.0); MEAN PLATELET VOLUME 10.1 fL (7.4-11.4); MONOCYTES # (AUTO) 0.1 10^3/uL (0.0-1.0); MONOCYTES % (AUTO) 1.6 %; NEUTROPHILS # (AUTO) 3.4 10^3/uL (1.5-6.6); NEUTROPHILS % (AUTO) 95.5 %; PLT - PLATELET COUNT 115 10^3/uL (130-450); RED BLOOD COUNT 2.06 10^6/uL (4.70-6.10); WHITE BLOOD COUNT 3.5 x10^3/uL (4.8-10.8)
[2018-04-05 10:45] LABS: HGB - HEMOGLOBIN 6.9 g/dL (14.0-18.0)
[2018-04-05 10:51] LABS: ALBUMIN 2.9 g/dL (3.2-5.5); ALBUMIN/GLOBULIN RATIO 0.8 (1.0-2.2); BILIRUBIN,TOTAL 2.3 mg/dL (0.2-1.0); CALCIUM 9.1 mg/dL (8.5-10.3); CREATININE 3.3 mg/dL (0.6-1.2); TOTAL PROTEIN 6.4 g/dL (6.7-8.2)
[2018-04-05 10:55] LABS: INR 1.5 (0.8-1.2); PT - PROTHROMBIN TIME 16.4 secs (9.9-12.6)
[2018-04-05 10:59] LABS: PLATELET MORPHOLOGY RARE GIANT PLATELETS (NORMAL)
[2018-04-05 11:00] LABS: RBC MORPHOLOGY (MULTIPLE) 3+ ANISOCYTOSIS (NORMAL)
--- NOTE | 2018-04-05 11:21 | XRAY Report ---
Reason: fever Procedure Date: 04/05/2018 Accession Number: [id number] / [id number] Procedure: XR - Chest 1 View X-Ray CPT Code: 86538 FULL RESULT: EXAM: CHEST RADIOGRAPHY EXAM DATE: 04/05/2018 11:07 AM. CLINICAL HISTORY: Fever. Shaking. Chills. COMPARISON: None. TECHNIQUE: 1 view. FINDINGS: Lungs/Pleura: Lung volumes are mildly decreased. Right medial basilar opacity. No vascular congestion. No pneumothorax. Prominent skin fold projected over the left upper lung. Mediastinum: Heart size upper normal. Aorta is mildly tortuous. Other: None. IMPRESSION: 1. Mild hypoventilatory changes with right medial basilar consolidation/atelectasis. RADIA
[2018-04-05 11:54] LABS: GLUCOSE, URINE (UA) NEGATIVE (NEGATIVE); KETONES,URINE (UA) NEGATIVE (NEGATIVE); LEUKOCYTE ESTERASE, URINE TRACE (NEGATIVE); NITRITE,URINE NEGATIVE (NEGATIVE); OCCULT BLOOD,URINE NEGATIVE (NEGATIVE); PROTEIN,URINE 30 mg/dL (NEGATIVE); UROBILINOGEN,URINE 1 (NORMAL) E.U./dL (NORMAL)
[2018-04-05 11:59] LABS: BILIRUBIN,URINE NEGATIVE (NEGATIVE); CLARITY,URINE HAZY (CLEAR); ICTOTEST,URINE NEGATIVE
--- NOTE | 2018-04-05 12:01 | CT Report ---
Reason: fever ruq pain, panceatic ca, biliary stent Procedure Date: 04/05/2018 Accession Number: [id number] / [id number] Procedure: CT - Abdomen/Pelvis W/O CPT Code: FULL RESULT: EXAM: CT ABDOMEN AND PELVIS EXAM DATE: 04/05/2018 11:17 AM. CLINICAL HISTORY: Fever, right upper quadrant pain, pancreatic cancer, biliary stent. COMPARISONS: 04/02/2018. TECHNIQUE: Routine helical CT imaging was performed through the abdomen and pelvis. IV contrast: None. Enteric contrast: No. Reconstructions: Coronal and sagittal. In accordance with CT protocol optimization, one or more of the following dose reduction techniques were utilized for this exam: automated exposure control, adjustment of mA and/or KV based on patient size, or use of iterative reconstructive technique. FINDINGS: Lung Bases: Bibasilar scar/atelectasis. Heart size is normal. Small hiatal hernia. Coronary artery calcified plaque. Trace pericardial effusion. Liver: Unenhanced images of the liver demonstrate a low-attenuation lesion in the right lobe, as before. Extensive pneumobilia. Gallbladder/Bile Ducts: Gallbladder is markedly distended with multiple gallstones, particularly within the neck of the gallbladder, as before. The gallbladder wall thickening is again seen and appears more prominent with progression of the pericholecystic edema. There is some thickening of the upper common bile duct and common hepatic duct, as before. Common bile duct stent again seen with some air and likely soft tissue/debris present within the lower common bile duct stent as before. Spleen: Splenomegaly with the spleen measuring a craniocaudad extent of 15 cm. Pancreas: Pancreatic parenchymal volume loss. No peripancreatic edema. Adrenal Glands: Normal. Kidneys: Renal parenchymal volume loss. Lower pole right renal cyst again seen. Nonobstructing left renal calculus. No hydronephrosis. No ureteral dilatation or ureteral calculi. Peritoneal Cavity/Bowel: Stomach is mildly distended and unremarkable. Stranding is seen along the descending duodenum. Edema tracking from the margins of the gallbladder to the right lower abdomen and right lower quadrant. No small-bowel obstruction. No free air. Diverticula are seen in the distal colon. No diverticulitis. Appendix is not seen. Right lower quadrant surgical clips are noted. Pelvic Organs: Urinary bladder is largely nondistended. Fatty inguinal hernias. No trace pelvic free fluid. No pelvic adenopathy. Vasculature: Vascular calcifications. Aneurysmal appearance of the abdominal aorta and right common iliac artery, as before. Bones: Degenerative changes of the lower thoracic and lumbar spine. Lumbar facet arthropathy. No acute osseous abnormalities. Likely vacuum phenomenon arising from the right sacroiliac joint. Other: None. IMPRESSION: 1. Cholelithiasis and marked gallbladder distention with progression of pericholecystic edema tracking to the right lower abdomen, most likely representing cholecystitis. 2. Common bile duct stent and pneumobilia, unchanged. 3. Colonic diverticulosis. No diverticulitis. No bowel obstruction. 4. Splenomegaly. RADIA
[2018-04-05 12:21] LABS: BACTERIA,URINE Few /HPF (None Seen); RBC,URINE 0-5 /HPF (0-5); SQUAMOUS EPITHELIAL CELL,UR FEW Squamous (<= Few)
[2018-04-05] MEDS ORDERED: SODIUM CHLORIDE 0.9% 2,000 ML IV ONE (12:50)
[2018-04-05] MEDS ORDERED: FAMOTIDINE 20 MG/50 ML 50 ML IV ONE (12:58)
[2018-04-05] MEDS ORDERED: PANTOPRAZOLE 80 MG in SODIUM CHLORIDE 0.9% 100ML 100 ML IV STA (12:58)
[2018-04-05] MEDS ORDERED: VANCOMYCIN INJ 1 GM in SODIUM CHLORIDE 0.9% 500 ML IV STA (13:12)
[2018-04-05] MEDS ORDERED: PROCHLORPERAZINE 10 MG/2 ML VIAL IVP PRN (16:10)
[2018-04-05] MEDS ORDERED: cefTRIAXone 2 GM in SODIUM CHLORIDE 0.9% MINIBAG 100 ML IV SCH (17:00)
[2018-04-05] MEDS: D5NS W/20 MEQ KCL 1,000 ML IV SCH (17:12)
[2018-04-05] MEDS: SODIUM CHLORIDE FLUSH 0.9% 10 ML SYRINGE IVP SCH (17:30)
[2018-04-05] MEDS: metroNIDAZOLE 500 MG/100 ML 500 MG/100 ML BAG IV SCH (17:40)
[2018-04-05] MEDS ORDERED: ACETAMINOPHEN 1,000 MG/100 ML 100 ML IV ONE (17:53)
[2018-04-05] MEDS ORDERED: ACETAMINOPHEN 1,000 MG/100 ML 100 ML IV PRN (17:53)
[2018-04-05] MEDS ORDERED: VANCOMYCIN PER PHARMACY 100 GM in SODIUM CHLORIDE 0.9% 250 ML IV SCH (20:00)
[2018-04-05] MEDS ORDERED: VANCOMYCIN INJ 1 GM in SODIUM CHLORIDE 0.9% 250 ML IV SCH (21:00)
[2018-04-05] MEDS: PANTOPRAZOLE 40 MG VIAL IVP SCH (21:22)
--- NOTE | 2018-04-05 22:13 | HISTORY & PHYSICAL EXAMINATION ---
DATE OF SERVICE: 04/05/2018 Physician: Krysta Kong MD HISTORY OF PRESENT ILLNESS: This is an 82-year-old white male with a history of obesity, history of appendectomy, hypertension, cholelithiasis, osteoarthritis, hearing loss, and chronic back pain. The patient was admitted to [facility] a week and a half ago with abdominal pain and underwent scoping there that found an angiodysplasia causing a GI bleed and the areas had direct treatment. He also had findings of a common bile duct stricture, which was stented with a metal stent. During that procedure, he was found to have a mass in the head of the pancreas, which had a fine needle biopsy done that came back showing cancer. He was discharged from there with plans for an MRI and Oncology evaluation for staging and management of the pancreatic cancer. Before having that Oncology evaluation, he went to see his doctor for followup, who told the patient that with pancreatic cancer, he had 6 months to live. The patient apparently became very depressed following this, and his attitude of aggressive management become more withdrawn. He also became short of breath with activity, had incontinence of urine, had a repeat of abdominal pain symptoms and was seen in ER and evaluated, discharged with diagnosis of possible GERD or gastritis or hiatal hernia. This morning he awoke with rigors, abdominal pain, nausea, and vomiting. He was confused. He was brought to the emergency room and found to be in shock. His blood pressure was 72, heart rate 130, elevated respiratory rate and labs showed elevated lactic acid level, and workup has shown that he has cholecystitis. He is being admitted to the ICU for management of septic shock. The emergency room doctor described to the family that his prognosis is poor, that he is in critical condition and that he may not survive. The ER MD offered to transfer him back to [facility] for management with Intensivists and Surgeons there, but this was declined by the family. In the ICU, he currently has rigors, but denies any pain or nausea and does describe thirst, but no other complaints. He has had intermittent responses to his family that appear to be inappropriate such as asking when he can go home. PAST MEDICAL HISTORY: Obesity, recent GI bleed from angiodysplasia in the upper GI tract, recent stenting of a stricture of the common bile duct, which was described as being narrowed secondary to pancreatic cancer, S/P head of pancreas biopsy that showed pancreatic cancer which had yet to be staged. REVIEW OF SYSTEMS: A comprehensive review of systems was performed from records review and speaking to the family, and the pertinent positives are in the HPI, the rest are negative. ALLERGIES: PENICILLIN. MEDICATIONS 1. Metoprolol tartrate 100 mg b.i.d. 2. Tamsulosin 0.4 mg daily. 3. Protonix 40 mg b.i.d. 4. Tylenol with codeine p.r.n. 5. Zofran p.r.n. SOCIAL HISTORY: He lives alone. His family comes to help him. He is a , has survived 2 wives. He has 2 grown sons, both are at his bedside. The patient is a nonsmoker, drinks no alcohol, uses no illicit drugs. FAMILY HISTORY: No inherited diseases. PHYSICAL EXAMINATION: GENERAL: Obese white male. He is having rigors as I am speaking to him. VITAL SIGNS: Blood pressure is 113/100, heart rate 147. He had a fever of 38.1. Room air saturation is 98%. HEENT: Reveals he is glassy eyed. Oral mucosa is dry. NECK: Obese. I cannot rule out JVD. LUNGS: Chest is clear at the anterior bases. HEART: Heart sounds are distant, tachycardic. ABDOMEN: Obese, nontender. Decreased bowel sounds. No palpable organomegaly. No guarding or rebound. EXTREMITIES: Show no clubbing, cyanosis, edema. NEUROLOGIC: He is confused, but otherwise there were no focal signs. LABORATORY DATA: Sodium 135, potassium 4.5, BUN 36, creatinine 3.3. Lactic acid 5.5 and repeat 2.8, then 3.0. Bilirubin 2.3, AST 53, ALT 29, alkaline phosphatase 144. Troponin 0.05. Albumin 2.9, lipase 57. INR 1.5. White blood count 3.5 with no left shift, hemoglobin 6.9, MCV 98, RDW 19, platelet count 115. Urinalysis showed high protein, trace of leukocyte esterase, and few bacteria. DIAGNOSTIC AND IMAGING DATA: Chest x-ray: mild hypoventilation, but no other findings. Abdomen and pelvis CT showed bibasilar atelectasis, gallbladder markedly distended with multiple stones especially in the neck of the gallbladder, gallbladder wall thickening; more prominent than on prior exams, and pericholecystic edema, thickening of the upper common bile duct and the common hepatic duct and a stent seen in the common bile duct. There is splenomegaly. The pancreas has parenchymal volume loss, but no edema. There is a renal cyst in the right lower pole and a nonobstructing left renal calculus. No dilation of the rest of the urinary tract. Stranding is seen in the descending duodenum and edema tracking from the gallbladder to the right lower abdomen and right lower quadrant. There is no bowel obstruction or free air. There are diverticula in the distal colon, but no diverticulitis. There are surgical clips in the right lower quadrant. 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 Degenerative changes of the lumbar and thoracic spine. IMPRESSION/DIAGNOSES 1. Septic shock. 2. Cholecystitis. 3. Severe anemia with recent gastrointestinal bleed from angiodysplasia. 4. 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 5. Recent common bile duct stenting for stricture from pancreatic mass. 6. Acute on chronic renal failure. 7. Obesity. PLAN: Admit the patient to the ICU, start a sepsis protocol. Follow his lactic acid level and Sed Rate for monitoring recovery. I had a long discussion with the family regarding the 50% or greater mortality risk because of his septic shock, the underlying pancreatic cancer that may have a 6-month or shorter prognosis and the GI bleed from angiodysplasias and need for transfusion, which was started in the ER. The family was able to bring his advanced directives, which were reviewed with me. The advance directives state that 2 physicians should determine that he is terminal and then the patient wishes comfort care, which includes no antibiotics or IV hydration. I discussed the case with Dr. Neumann following seeing these advanced directives and she reviewed them as well. We both feel that the patient's mortality is high, but he is not terminal in terms of treating an infection; however, if he stabilizes, the best option for the gallbladder would be cholecystectomy, which would be better served at a higher level of care hospital. The family has decided that aggressive management will be attempted for 24 hours and if he has minimal or no improvement, then he will be deemed terminal and comfort care will then be started. Currently, we will treat his fever with Ofirmev, dehydration with crystalloid fluids and pressors if needed for further management of his shock. Blood cultures to guide antibiotic therapy. Start empiric antibiotics for a cholecystitis intra-abdominal source. Therefore, we will use Flagyl and ceftriaxone. Continue his H2 blockers because of the high chance of stress ulcers. Begin a Castro to monitor accurate I's and O's. Follow his daily CBC and electrolytes, BUN and creatinine, and liver tests. CODE STATUS: DNR. DEEP VENOUS THROMBOSIS PROPHYLAXIS: Sequential compression devices. ATTESTATION: The patient is expected to be discharged or transferred to another facility within 96 hours: Yes. cc: Bulmaro Kaiser MD TD: 04/05/2018 19:51 MTDD
[2018-04-05 23:50] LABS: BASOPHILS % (AUTO) 0.3 %; HGB - HEMOGLOBIN 7.9 g/dL (14.0-18.0); LYMPHOCYTES # (AUTO) 0.2 10^3/uL (1.5-3.5); LYMPHOCYTES % (AUTO) 2.1 %; MEAN CORPUSCULAR HEMOGLOBIN 31.9 pg (27.0-31.0); MEAN CORPUSCULAR HGB CONC 33.1 g/dL (32.0-36.0); MEAN CORPUSCULAR VOLUME 96.5 fL (80.0-94.0); MONOCYTES # (AUTO) 0.5 10^3/uL (0.0-1.0); MONOCYTES % (AUTO) 6.7 %; NEUTROPHILS # (AUTO) 7.4 10^3/uL (1.5-6.6); NEUTROPHILS % (AUTO) 90.9 %; PLT - PLATELET COUNT 87 10^3/uL (130-450); RED BLOOD COUNT 2.48 10^6/uL (4.70-6.10); RED CELL DISTRIBUTION WIDTH 19.4 % (12.0-15.0); WHITE BLOOD COUNT 8.1 x10^3/uL (4.8-10.8)
[2018-04-06 00:02] LABS: MAGNESIUM 1.3 mg/dL (1.7-2.8); PHOSPHORUS 3.4 mg/dL (2.5-4.6)
[2018-04-06 00:03] LABS: ALBUMIN 2.4 g/dL (3.2-5.5); ALBUMIN/GLOBULIN RATIO 0.8 (1.0-2.2); ALKALINE PHOSPHATASE 89 IU/L (42-121); ALT ALANINE AMINOTRANSFERASE 31 IU/L (10-60); AST ASPARTATE AMINOTRANSFERASE 50 IU/L (10-42); BILIRUBIN,TOTAL 1.9 mg/dL (0.2-1.0); BUN - BLOOD UREA NITROGEN 40 mg/dL (6-20); CALCIUM 7.7 mg/dL (8.5-10.3); CARBON DIOXIDE - CO2 17 mmol/L (21-32); CHLORIDE 111 mmol/L (101-111); CREATININE 3.3 mg/dL (0.6-1.2); GFR - MDRD 18 (>89); GLUCOSE 203 mg/dL (70-100); SODIUM 136 mmol/L (135-145); TOTAL PROTEIN 5.6 g/dL (6.7-8.2)
[2018-04-06 00:08] LABS: VBG PH 7.328 (7.31-7.41)
[2018-04-06] MEDS ORDERED: MAGNESIUM SULFATE 2 GRAM 2 GM/50 ML BAG IV ONE (00:11)
[2018-04-06] MEDS ORDERED: SODIUM CHLORIDE 0.9% 1,000 ML IV ONE (00:12)
[2018-04-06] MEDS: SODIUM CHLORIDE FLUSH 0.9% 10 ML SYRINGE IVP SCH ×3 (00:21→17:21)
[2018-04-06] MEDS: metroNIDAZOLE 500 MG/100 ML 500 MG/100 ML BAG IV SCH ×2 (00:44→08:42)
[2018-04-06 05:14] LABS: BASOPHILS % (AUTO) 0.2 %; EOSINOPHILS % (AUTO) 0.1 %; HGB - HEMOGLOBIN 7.6 g/dL (14.0-18.0); LYMPHOCYTES # (AUTO) 0.2 10^3/uL (1.5-3.5); LYMPHOCYTES % (AUTO) 3.3 %; MEAN CORPUSCULAR HEMOGLOBIN 32.4 pg (27.0-31.0); MEAN CORPUSCULAR HGB CONC 33.7 g/dL (32.0-36.0); MEAN CORPUSCULAR VOLUME 96.4 fL (80.0-94.0); MONOCYTES # (AUTO) 0.4 10^3/uL (0.0-1.0); MONOCYTES % (AUTO) 5.9 %; NEUTROPHILS # (AUTO) 6.1 10^3/uL (1.5-6.6); NEUTROPHILS % (AUTO) 90.5 %; PLT - PLATELET COUNT 86 10^3/uL (130-450); RED BLOOD COUNT 2.34 10^6/uL (4.70-6.10); RED CELL DISTRIBUTION WIDTH 19.7 % (12.0-15.0); WHITE BLOOD COUNT 6.7 x10^3/uL (4.8-10.8)
[2018-04-06 05:21] LABS: ALBUMIN 2.3 g/dL (3.2-5.5); ALBUMIN/GLOBULIN RATIO 0.8 (1.0-2.2); BILIRUBIN,TOTAL 1.4 mg/dL (0.2-1.0); CALCIUM 7.6 mg/dL (8.5-10.3); MAGNESIUM 1.8 mg/dL (1.7-2.8); PHOSPHORUS 3.1 mg/dL (2.5-4.6); TOTAL PROTEIN 5.3 g/dL (6.7-8.2)
[2018-04-06] MEDS: D5NS W/20 MEQ KCL 1,000 ML IV SCH (05:51)
[2018-04-06] MEDS ORDERED: MORPHINE 2 MG/ML CARPUJECT IVP PRN ×2 (07:10→13:47)
[2018-04-06] MEDS: HYDROmorphone 1 MG/ML CARPUJECT IVP PRN ×4 (07:40→19:29)
[2018-04-06] MEDS ORDERED: POLYETHYLENE GLYCOL 3350 17 GM PACKET PO SCH (09:00)
--- NOTE | 2018-04-06 09:26 | XRAY Report ---
Reason: Increased abd pain, distention and distress Procedure Date: 04/06/2018 Accession Number: [id number] / [id number] Procedure: XR - Abdomen Acute CPT Code: FULL RESULT: EXAM: ABDOMINAL SERIES AND PA CHEST EXAM DATE: 04/06/2018 08:12 AM. CLINICAL HISTORY: Increased abdominal pain, distention and distress. COMPARISON: ABDOMEN/PELVIS W/O 04/05/2018 11:09 AM ABDOMEN/PELVIS W/ 04/02/2018 3:16 AM. TECHNIQUE: 2 views abdomen and 1 view chest. FINDINGS: CHEST: Lungs/Pleura: No focal opacities. No effusion or pneumothorax. Mediastinum: Tortuous thoracic aorta. ABDOMEN: Bowel Gas Pattern: Multiple mildly dilated adjacent small bowel loops within left mid hemiabdomen with a projected diameter measuring up to 3.3 cm. Free Air: None. Other: Left liver lobe pneumobilia. Right lower quadrant surgical clips. IMPRESSION: 1. No focal lung infiltrate. 2. Multiple dilated small bowel loops are probably from ileus. Cannot exclude early small bowel obstruction. RADIA
[2018-04-06] MEDS: PANTOPRAZOLE 40 MG VIAL IVP SCH (09:28)
[2018-04-06] MEDS: SODIUM CHLORIDE FLUSH 0.9% 10 ML SYRINGE IVP PRN ×3 (09:28→19:29)
[2018-04-06] MEDS ORDERED: GLYCOPYRROLATE 1 MG/5 ML VIAL SUBQ PRN (13:41)
[2018-04-06] MEDS ORDERED: ATROPINE 1% OPHTH DROPS 2 ML SL PRN (13:41)
[2018-04-06] MEDS ORDERED: HALOPERIDOL 5 MG/ML VIAL IVP PRN ×2 (13:41)
[2018-04-06] MEDS ORDERED: LORazepam 2 MG/ML VIAL IVP PRN (13:41)
[2018-04-06] MEDS: SCOPOLAMINE PATCH TOP SCH (14:58)
--- NOTE | 2018-04-06 16:39 | PROVIDER PROGRESS NOTE ---
Assessment/Plan - Problem List (1) Ileus Assessment/Plan: The family wants the pt to be comfortable and to rspct his wishes of no ng tube. As such he will need pain control, which may further drop his BP. Family made aware. (2) Gram-positive bacteremia Assessment/Plan: Pt on empiric antibiotics. No ID of bacteria yet. (3) Gram-negative bacteremia Assessment/Plan: Pt on empiric antibiotics. No ID of bacteria yet. (4) Septic shock Assessment/Plan: Since he has had a set back with a new ileus, and has an expected high mortality rate from septic shock, the family h.uested that all aggressive medical management be stopped and Comfort Care instituted. He will have his iv fluids and antibiotics stopped, will order a Comfort Care order set. The family was told that he may survive for another day or so (5) Cholecystitis Assessment/Plan: The sent placement in common bile duct and manipulation may have precipitated this cholecystitis event, but he also had and has gallstones. No further medical management planned. (6) Pancreatic cancer Assessment/Plan: As above (7) Anemia Assessment/Plan: No further transfusions or lab draws planned. (8) Comfort measures only status Assessment/Plan: The Comfort Care set will be ordered. - Current Meds Current Meds: Current Medications Generic Name Dose Route Start Last Admin Trade Name Freq PRN Reason Stop Dose Admin Hydromorphone HCl 2 mg 04/06/18 07:27 04/06/18 13:28 Dilaudid Inj Carp IVP 2 mg Q2HR PRN Administration PAIN Acetaminophen 100 mls @ 400 mls/hr 04/05/18 17:53 04/06/18 07:26 Ofirmev IV Infused Q6HR PRN Infusion Pain or Fever > 38C (100.4F) Scopolamine HBr 1 patch 04/06/18 14:00 04/06/18 14:58 Transderm-Scop TOP 1 patch Q3D SAVITA Administration Sodium Chloride 10 ml 04/05/18 17:00 04/06/18 09:28 Normal Saline Flush 0.9% IVP 10 ml 0100,0900,1700 SAVITA Administration Sodium Chloride 10 ml 04/05/18 16:10 04/06/18 15:02 Normal Saline Flush 0.9% IVP 10 ml PRN PRN Administration NEEDED PER PROVIDER ORDERS - Lab Result Fish Bone Diagrams: 04/06/18 04:29 04/06/18 04:29 - Additional Planning My Orders: My Active Orders 04/05/18 16:10 Activity Orders [RC] Routine Initiate Line Care Protocol [RC] .protocol Initiate Personal Care Protoco [RC] .protocol Vital Signs [RC] PRN Prochlorperazine Inj [Compazine Inj] 10 mg IVP Q6HR PRN Sodium Chloride Flush 0.9% [Normal Saline Flush 0.9%] 10 ml IVP PRN PRN Code Status [OTHERS] Routine Condition of Patient [OTHERS] Routine DVT Prophylaxis [OTHERS] Routine 04/05/18 16:14 Castro Insertion [RC] Routine Oxygen Therapy [RC] .PRN SCDs [RC] QSHIFT Turn and Reposition [RC] Routine 04/05/18 17:00 Sodium Chloride Flush 0.9% [Normal Saline Flush 0.9%] 10 ml IVP 0100,0900,1700 04/05/18 17:53 Acetaminophen 1,000 mg/100 ml [Ofirmev] 100 ml IV Q6HR 04/06/18 08:00 Echo Transthoracic w/Definity [ECHO] Routine 04/06/18 13:41 Oral Care - Nursing [RC] Q2HR Atropine 1% Ophth Drops [Isopto Atropine 1% Ophth Drops] 1 - 4 drops SL Q2H PRN Glycopyrrolate [Robinul] 0.2 mg SUBQ Q4H PRN Haloperidol Inj [Haldol Inj] 0.5 mg IVP Q6H PRN Haloperidol Inj [Haldol Inj] 1 mg IVP Q2H PRN LORazepam INJ [Ativan Inj (Vial)] 1 mg IVP Q6H PRN 04/06/18 13:42 Comfort Care [RC] QSHIFT 04/06/18 13:44 Cooling Unit [RC] prn Warming Unit [RC] prn 04/06/18 13:47 Morphine Inj (Carpuject) [Morphine (Carpuject)] 2 mg IVP Q1HR PRN 04/06/18 14:00 Scopolamine Patch [Transderm-Scop] 1 patch TOP Q3D Subjective - Subjective Patient Reports: Other (c/o abd pain this am) Nursing Reports: Other (ng was placed for decompression but he refused to have it) Objective Vital Signs: Vital Signs - 24 hr 04/05/18 04/05/18 04/05/18 17:30 18:00 19:00 Temperature 37.4 C Heart Rate 147 H Heart Rate [ 155 H 136 H 137 H Monitoring electrodes] Respiratory 32 H 29 H 31 H Rate Blood Pressure 113/100 H Blood Pressure 123/49 L 113/100 H 105/71 [Right Brachial artery] O2 Saturation 98 98 96 04/05/18 04/05/18 04/05/18 20:00 21:15 22:00 Temperature 37.8 C H Heart Rate Heart Rate [ 135 H 120 H 121 H Monitoring electrodes] Respiratory 23 23 22 Rate Blood Pressure Blood Pressure 96/62 88/49 L 73/51 L [Right Brachial artery] O2 Saturation 97 96 95 04/05/18 04/06/18 04/06/18 23:00 00:00 01:00 Temperature 36.4 C L Heart Rate Heart Rate [ 108 H 114 H 114 H Monitoring electrodes] Respiratory 21 17 15 Rate Blood Pressure Blood Pressure 79/51 L 94/66 86/57 L [Right Brachial artery] O2 Saturation 99 96 97 04/06/18 04/06/18 04/06/18 02:00 03:00 04:00 Temperature 36.6 C Heart Rate Heart Rate [ 113 H 114 H 113 H Monitoring electrodes] Respiratory 18 21 16 Rate Blood Pressure Blood Pressure 92/59 L 104/72 82/55 L [Right Brachial artery] O2 Saturation 98 99 98 04/06/18 04/06/18 04/06/18 05:00 06:00 07:00 Temperature Heart Rate Heart Rate [ 113 H 119 H 117 H Monitoring electrodes] Respiratory 18 18 18 Rate Blood Pressure Blood Pressure 84/59 L 101/66 111/72 [Right Brachial artery] O2 Saturation 97 100 97 04/06/18 04/06/18 04/06/18 07:43 08:00 09:00 Temperature 36.7 C Heart Rate Heart Rate [ 122 H 132 H Monitoring electrodes] Respiratory 12 15 Rate Blood Pressure Blood Pressure 124/78 100/59 L 102/71 [Right Brachial artery] O2 Saturation 96 97 04/06/18 04/06/18 04/06/18 10:00 11:00 11:57 Temperature 36.9 C Heart Rate Heart Rate [ 137 H 139 H 152 H Monitoring electrodes] Respiratory 12 12 Rate Blood Pressure Blood Pressure 89/57 L 105/65 [Right Brachial artery] O2 Saturation 95 98 04/06/18 04/06/18 12:00 15:26 Temperature Heart Rate Heart Rate [ 150 H 150 H Monitoring electrodes] Respiratory 14 7 L Rate Blood Pressure Blood Pressure 98/58 L [Right Brachial artery] O2 Saturation 96 95 Oxygen O2 Source Room air I&O (Last 24 Hrs): Intake and Output Totals x24h 04/04/18 04/05/18 04/06/18 23:59 23:59 23:59 Intake Total 6116.0 4400 Output Total 102 360 Balance 6014.0 4040 General: Other (Awaken to name) HEENT: Mucous membr. moist/pink Neck: Other (Obese) Neuro: Other (Lethargic) Cardiovascular: Regular rate, No murmurs, Other (Distant HS, tachy) Respiratory: No respiratory distress, Breath sounds nml Abdomen: Other (Distended, decreased bowel sounds, hypertympanic, too somnolent to assess forr guarding or rebound) Extremities: No edema - Results Results: Laboratory Results WBC 6.7 x10^3/uL (4.8-10.8) 04/06/18 04:29 RBC 2.34 10^6/uL (4.70-6.10) L 04/06/18 04:29 Hgb 7.6 g/dL (14.0-18.0) L 04/06/18 04:29 Hct 22.6 % (42.0-52.0) L 04/06/18 04:29 MCV 96.4 fL (80.0-94.0) H 04/06/18 04:29 MCH 32.4 pg (27.0-31.0) H 04/06/18 04:29 MCHC 33.7 g/dL (32.0-36.0) 04/06/18 04:29 RDW 19.7 % (12.0-15.0) H 04/06/18 04:29 Plt Count 86 10^3/uL (130-450) L 04/06/18 04:29 MPV 11.0 fL (7.4-11.4) 04/06/18 04:29 Neut # (Auto) 6.1 10^3/uL (1.5-6.6) 04/06/18 04:29 Lymph # (Auto) 0.2 10^3/uL (1.5-3.5) L 04/06/18 04:29 [place] # (Auto) 0.4 10^3/uL (0.0-1.0) 04/06/18 04:29 Eos # (Auto) 0.0 10^3/uL (0.0-0.7) 04/06/18 04:29 Baso # (Auto) 0.0 10^3/uL (0.0-0.1) 04/06/18 04:29 Absolute Nucleated RBC 0.01 x10^3/uL 04/06/18 04: Nucleated RBC % 0.1 /100WBC 04/06/18 04:29 Manual Slide Review Indicated 04/05/18 10:24 Platelet Morphology RARE GIANT PLATELETS (NORMAL) 04/05/18 10:24 RBC Morph Micro Appear 3+ ANISOCYTOSIS (NORMAL) 04/05/18 10:24 ESR > 140 mm/Hr (0-20) H 04/05/18 18:05 PT 16.4 secs (9.9-12.6) H 04/05/18 10:44 INR 1.5 (0.8-1.2) H 04/05/18 10:44 VBG pH 7.328 (7.31-7.41) 04/05/18 23:47 Ionized Calcium 1.08 mmol/L (1.15-1.33) L 04/05/18 23:47 Sodium 138 mmol/L (135-145) 04/06/18 04:29 Potassium 4.2 mmol/L (3.5-5.0) 04/06/18 04:29 Chloride 114 mmol/L (101-111) H 04/06/18 04:29 Carbon Dioxide 16 mmol/L (21-32) L 04/06/18 04:29 Anion Gap 8.0 (6-13) 04/06/18 04:29 BUN 40 mg/dL (6-20) H 04/06/18 04:29 Creatinine 3.0 mg/dL (0.6-1.2) H 04/06/18 04:29 Estimated GFR (MDRD) 20 (>89) L 04/06/18 04:29 Glucose 179 mg/dL (70-100) H 04/06/18 04:29 Lactic Acid 1.0 mmol/L (0.5-2.2) 04/06/18 04:29 Calcium 7.6 mg/dL (8.5-10.3) L 04/06/18 04:29 Ionized Calcium YES 04/05/18 23:47 Phosphorus 3.1 mg/dL (2.5-4.6) 04/06/18 04:29 Magnesium 1.8 mg/dL (1.7-2.8) 04/06/18 04:29 Total Bilirubin 1.4 mg/dL (0.2-1.0) H 04/06/18 04:29 AST 51 IU/L (10-42) H 04/06/18 04:29 ALT 32 IU/L (10-60) 04/06/18 04:29 Alkaline Phosphatase 85 IU/L (42-121) 04/06/18 04:29 Troponin I 0.06 ng/mL (<0.49) 04/06/18 04:29 Total Protein 5.3 g/dL (6.7-8.2) L 04/06/18 04:29 Albumin 2.3 g/dL (3.2-5.5) L 04/06/18 04:29 Globulin 3.0 g/dL (2.1-4.2) 04/06/18 04:29 Albumin/Globulin Ratio 0.8 (1.0-2.2) L 04/06/18 04:29 Lipase 57 U/L (22-51) H 04/05/18 10:24 Urine Color DARK YELLOW 04/05/18 11:38 Urine Clarity HAZY (CLEAR) 04/05/18 11:38 Urine pH 5.0 PH (5.0-7.5) 04/05/18 11:38 Ur Specific Foley 1.025 (1.002-1.030) 04/05/18 11:38 Urine Protein 30 mg/dL (NEGATIVE) H 04/05/18 11:38 Urine Glucose (UA) NEGATIVE mg/dL (NEGATIVE) 04/05/18 11:38 Urine Ketones NEGATIVE mg/dL (NEGATIVE) 04/05/18 11:38 Urine Occult Blood NEGATIVE (NEGATIVE) 04/05/18 11:38 Urine Nitrite NEGATIVE (NEGATIVE) 04/05/18 11:38 Urine Bilirubin NEGATIVE (NEGATIVE) 04/05/18 11:38 Urine Urobilinogen 1 (NORMAL) E.U./dL (NORMAL) 04/05/18 11:38 Ur Leukocyte Esterase TRACE (NEGATIVE) H 04/05/18 11:38 Urine RBC 0-5 /HPF (0-5) 04/05/18 11:38 Urine WBC 6-10 /HPF (0-3) H 04/05/18 11:38 Ur Squamous Epith Cells FEW Squamous (<= Few) 04/05/18 11:38 Urine Bacteria Few /HPF (None Seen) 04/05/18 11:38 Urine Casts 11-25 Hyaline Casts /LPF6-10 Granular Casts /LPF 04/05/18 11:38 Urine Casts 11-25 Hyaline Casts /LPF6-10 Granular Casts /LPF 04/05/18 11:38 Ur Microscopic Review INDICATED 04/05/18 11:38 Urine Culture Comments INDICATED 04/05/18 11:38 Blood Type A POSITIVE 04/05/18 11:40 Blood Type Recheck A POSITIVE 04/05/18 13:02 Antibody Screen NEGATIVE 04/05/18 11:40 Crossmatch IS Only See Detail 04/05/18 11:40 - Procedures Procedures: Procedures REPLACEMENT OF LEFT LENS WITH SYNTH SUB, PERC APPROACH (10/05/15)
--- NOTE | 2018-04-06 20:57 | ADVANCE CARE PLANNING NOTE ---
Advance Care Planning - Date/Time Date: 04/05/18 Time: 15:00 - Purpose of encounter Text: To establish code status and aggressiveness of medical care - Parties in attendance Parties in attendance: I spoke to the two sons and [id number]. The two sons are DPOAs. - Decisional capacity Decisional capacity of: The patient is confused, since he is in shock, he does not have capacity to make decisions. The decisional capacity is by the 2 sons, who are the DPOAs. - Subjective/Patient's story Subjective/Patient's story: He is a , has outlived 2 wives. He is independent, gets help from his family, mostly his 2 sons. He has gotten sick recently, with GI bleeding, abdominal pain, diagnosed with pancreatic cancer and is awaiting oncology staging and management. In the last 2 days he has become more confused, lethargic and then developed a fever and was brought in and found to have septic shock. - Objective/Medical story Objective/Medical Story: The patient was recently discharged from [facility], where he had management for a GI bleed with endoscopy and angiodysplasia was found. The workup also showed a common bile duct stricture for which he received a metal stent. Gallstones were noted but he had no cholecystitis. A mass in the head of the pancreas was also found which was needle biopsied and found to be pancreatic cancer. He was to have an MRI in staging by an oncologist in several days. His primary care provider mentioned that he had a 46-month prognosis and the patient became despondent. There has been noOncology evaluation yet. The patient had abdominal pain and was seen in an ER, diagnosed with probable gastritis and sent home with increased GI meds. He became more confused, lethargic and had rigors and chills and was brought into the emergency room today. He is now found to have septic shock from cholecystitis, bacteremia is present and he has a high risk of mortality (50%) due to the septic shock. His 2 sons are his DPOA's. The oldest son found an Advanced Directive document that describes the patient's wishes for end-of-life care. He wants comfort measures, no aggressive invasive treatment, no antibiotics or NG feeding or ventilator support. The 2 sons and [id number] want to respect his wishes. The document indicates that 2 physicians should determine that he is terminal.I spoke with the emergency room physician who admitted this patient and knows his recent history. Dr Vasquez reviewed the document, and agrees with my assessment that this current problem of septic shock has a 50% or greater mortality rate. His pancreatic cancer appears to be at an advanced stage, since there is spread to cause a common bile duct stricture, which therefore has a prognosis of less than 6 months. He is currently anemic, and may have rebleeding from the upper GI tract, which is also serious. - Goals of Care Goals of care determinations: The family reiterates the importance of keeping the patient comfortable and not in pain. We reviewed the various paragraphs of the patient's advanced care document in detail and several times. I described certain scenarios to determine the type of management available for pain control, thirst, agitation and anxiety and potential shortness of breath, and these were spelled out and agreed upon in this discussion with myself and the family. - Plan Plan: We will be providing aggressive medical management for the septic shock for the upcoming 24 hours and determine his response at that time. If there has been only minimal improvement, no improvement or worsening condition, the family wo uld like the aggressive management withdrawn then and to give him comfort care only and allow a natural . - Code Status Code Status: Do Not Attempt Resuscitation - Time Spent on Advance Care Planning Time spent on advance care plannin min
[2018-04-07] MEDS: HYDROmorphone 1 MG/ML CARPUJECT IVP PRN ×5 (03:31→22:17)
[2018-04-07] MEDS: SODIUM CHLORIDE FLUSH 0.9% 10 ML SYRINGE IVP SCH ×3 (03:31→17:03)
[2018-04-07] MEDS: SODIUM CHLORIDE FLUSH 0.9% 10 ML SYRINGE IVP PRN ×2 (10:48→22:17)
--- NOTE | 2018-04-07 17:31 | PROVIDER PROGRESS NOTE ---
Subjective - Prog Note Date Prog Note Date: 04/07/18 Prog Note Time: 17:29 - Subjective Pt reports feeling: Worse Subjective: patient is obtunded and lethargic, apneic receiving Comfort care measures. Current Medications - Current Medications Current Medications: Active Medications Atropine Sulfate (Isopto Atropine 1% Ophth Drops) 1 - 4 drops SL Q2H PRN PRN Reason: Excessive secretions Glycopyrrolate (Robinul) 0.2 mg SUBQ Q4H PRN PRN Reason: Excessive secretions Haloperidol (Haldol Inj) 0.5 mg IVP Q6H PRN PRN Reason: Nausea / Vomiting Haloperidol (Haldol Inj) 1 mg IVP Q2H PRN PRN Reason: Agitation Hydromorphone HCl (Dilaudid Inj Carp) 2 mg IVP Q2HR PRN PRN Reason: PAIN Last Admin: 04/07/18 17:03 Dose: 2 mg Acetaminophen (Ofirmev) 100 mls @ 400 mls/hr IV Q6HR PRN PRN Reason: Pain or Fever > 38C (100.4F) Last Infusion: 04/06/18 07:26 Dose: Infused Lorazepam (Ativan Inj (Vial)) 1 mg IVP Q6H PRN PRN Reason: Anxiety/Agitation Morphine Sulfate (Morphine (Carpuject)) 2 mg IVP Q1HR PRN PRN Reason: PAIN Prochlorperazine Edisylate (Compazine Inj) 10 mg IVP Q6HR PRN PRN Reason: Nausea / Vomiting Scopolamine HBr (Transderm-Scop) 1 patch TOP Q3D [facility] Last Admin: 04/06/18 14:58 Dose: 1 patch Sodium Chloride (Normal Saline Flush 0.9%) 10 ml IVP 0100,0900,1700 [facility] Last Admin: 04/07/18 17:03 Dose: 10 ml Sodium Chloride (Normal Saline Flush 0.9%) 10 ml IVP PRN PRN PRN Reason: NEEDED PER PROVIDER ORDERS Last Admin: 04/07/18 10:48 Dose: 10 ml Metoprolol Tartrate 100 mg PO BID 10/05/15 Hydrocodone/Acetaminophen [Hydrocodone-Acetamin 5-325 mg] 04/05/18 Pantoprazole Sodium [Protonix] 40 mg PO BID 04/05/18 Tamsulosin HCl [Flomax] 0.4 mg PO DAILY 04/05/18 Objective - Vital Signs/Intake & Output Intake & Output: Intake & Output 04/04/18 04/05/18 04/06/18 04/07/18 23:59 23:59 23:59 23:59 Intake Total 6116.0 4400 Output Total 102 375 210 Balance 6014.0 4025 -210 - Objective General Appearance: positive: Lethargic (obtunded and apneic) Neck: positive: Trachea midline. negative: No JVD Respiratory: positive: Chest non-tender, Other (apneic) Cardiovascular: positive: Regular rate & rhythm Skin: positive: Color nml, Dry Extremities: positive: Pedal edema Neurologic/Psychiatric: positive: Other (encephalopathic) - Lab Results Fish Bones: 04/06/18 04:29 04/06/18 04:29 ABX Reporting Has patient been on IV antibiotics over the past 48 hours?: No Assessment/Plan - Problem List (1) Encephalopathy acute Impression: Multi-factorial with apneic events, septic shock primarily from acute cholecystits, query on ascending cholangits, w/ underlying pancreatic cancer. Hospice to evaluate. On comfort care measures to continue. (2) Anemia Impression: Patient will not be candidate for transfusions. Poor prognosis. Qualifiers: Anemia type: unspecified type Qualified Code(s): D64.9 - Anemia, unspecified (3) Cholecystitis Impression: The stent placement in common bile duct and manipulation may have precipitated this cholecystitis event, but he also had and has gallstones. No a surgical candidate and likely seeding into bloodstream. Query on ascending cholangitis, No further medical management planned. (4) Comfort measures only status Impression: Continue with comfort care measures, palliattice to address QOL, goal and advance care planning to transition to Hospice which is in line with advance directives. (5) Gram-negative bacteremia Impression: Growing serratia in blood likely from biliary source. On Comfort care measures. Hospice to eval. (6) Gram-positive bacteremia Impression: Growing enterococcus faecalis. CCM to continue, referral to hospice (7) Ileus Impression: The family wants the pt to be comfortable and to respect his wishes of no ng tube. As such he will need pain control, which may further drop his BP. Family made aware. In addition, no enteral feeds per patient's advance directives. Will refer to hospice. (8) Pancreatic cancer Impression: poor prognosis and will be referred to hospice, [facility]. Qualifiers: Pancreatic malignancy location: head of pancreas Qualified Code(s): C25.0 - Malignant neoplasm of head of pancreas (9) Septic shock Impression: Evidence of MODS/MOF. enterococcus and serratia bacteremia likely sec to biliary source from prior stent and instrumentation. The family was told that patient has poor px and high mortality rate.
[2018-04-08] MEDS: SODIUM CHLORIDE FLUSH 0.9% 10 ML SYRINGE IVP SCH ×3 (05:01→22:01)
[2018-04-08] MEDS: HYDROmorphone 1 MG/ML CARPUJECT IVP PRN ×5 (05:01→21:57)
[2018-04-08] MEDS: SODIUM CHLORIDE FLUSH 0.9% 10 ML SYRINGE IVP PRN ×2 (09:44→18:08)
[2018-04-08] MEDS ORDERED: fentaNYL 25 MCG PATCH TOP SCH (12:00)
[2018-04-08] MEDS ORDERED: fentaNYL 50 MCG PATCH TOP SCH (12:00)
[2018-04-08] MEDS: SCOPOLAMINE PATCH TOP SCH (14:16)
--- NOTE | 2018-04-08 16:34 | PROVIDER PROGRESS NOTE ---
Subjective - Prog Note Date Prog Note Date: 04/08/18 Prog Note Time: 16:32 - Subjective Pt reports feeling: Worse (Patient is obtunded and has intermittent lucid intervals, apneic at times) Current Medications - Current Medications Current Medications: Active Medications Atropine Sulfate (Isopto Atropine 1% Ophth Drops) 1 - 4 drops SL Q2H PRN PRN Reason: Excessive secretions Fentanyl (Duragesic) 1 patch TOP Q72H [facility] Last Admin: 04/08/18 13:19 Dose: 1 patch Fentanyl (Duragesic) 1 patch TOP Q72H [facility] Last Admin: 04/08/18 13:20 Dose: 1 patch Glycopyrrolate (Robinul) 0.2 mg SUBQ Q4H PRN PRN Reason: Excessive secretions Haloperidol (Haldol Inj) 0.5 mg IVP Q6H PRN PRN Reason: Nausea / Vomiting Haloperidol (Haldol Inj) 1 mg IVP Q2H PRN PRN Reason: Agitation Hydromorphone HCl (Dilaudid Inj Carp) 2 mg IVP Q2HR PRN PRN Reason: PAIN Last Admin: 04/08/18 14:13 Dose: 2 mg Lorazepam (Ativan Inj (Vial)) 1 mg IVP Q6H PRN PRN Reason: Anxiety/Agitation Morphine Sulfate (Morphine (Carpuject)) 2 mg IVP Q1HR PRN PRN Reason: PAIN Prochlorperazine Edisylate (Compazine Inj) 10 mg IVP Q6HR PRN PRN Reason: Nausea / Vomiting Scopolamine HBr (Transderm-Scop) 1 patch TOP Q3D [facility] Last Admin: 04/08/18 14:16 Dose: 1 patch Metoprolol Tartrate 100 mg PO BID 10/05/15 Hydrocodone/Acetaminophen [Hydrocodone-Acetamin 5-325 mg] 04/05/18 Pantoprazole Sodium [Protonix] 40 mg PO BID 04/05/18 Tamsulosin HCl [Flomax] 0.4 mg PO DAILY 04/05/18 Objective - Vital Signs/Intake & Output Vital Signs: Vital Signs x48h Temp Pulse Resp BP Pulse Ox 04/08/18 11:00 36.6 C 149 H 16 86/42 L 90 L Intake & Output: Intake & Output 04/05/18 04/06/18 04/07/18 04/08/18 23:59 23:59 23:59 23:59 Intake Total 6116.0 4400 Output Total 102 375 210 345 Balance 6014.0 4025 -210 345 - Objective General Appearance: positive: Lethargic, Other (remains obtunded) ENT: positive: Dry mucous membranes Neck: positive: Thyroid nml, No JVD, Trachea midline Respiratory: positive: Rhonchi (decreased BS bilaterally to bases), Other Cardiovascular: positive: Tachycardia Abdomen: positive: Tenderness, Guarding (painful to tympany), Rebound, Other Skin: positive: Warm, Pallor Neurologic/Psychiatric: positive: Weakness (remains obtunded and encephalopathic), Other - Lab Results Fish Bones: 04/06/18 04:29 04/06/18 04:29 Other Labs: Lab Results x24hrs 04/05/18 Range/Units 11:40 Crossmatch IS Only See Detail ABX Reporting Has patient been on IV antibiotics over the past 48 hours?: No Assessment/Plan - Problem List (1) Encephalopathy acute Impression: sec to septic shock with multi-organ failure. To continue with current comfort care measures. Hospice referral made but likely will pass away here. (2) Cholecystitis Impression: Not a surgical candidate, not on iv abx, CCM to continue (3) Comfort measures only status Impression: Hospice referral was made however patient due to imminent would defer on admission as this would require moving patient elsewhere and family is ok with continuation of CCM in hospital until he passes. (4) Gram-negative bacteremia Impression: Not on IV abx due to comfort care measures. Serratia marscecens, sec to biliary source, has biliary stented, and developed ileus that is painful, high risk of perforation. Poor px. (5) Gram-positive bacteremia Impression: E. faecalis from prior instrumentation and development of ileus. High risk of perforation. (6) Ileus Impression: Will place on Fentanyl patch 75 mcg TD q 72 hrs. (7) Pancreatic cancer Impression: comfort care measures to continue. poor prognosis and will be referred to hospice, [facility] does not have a bed and likely to defer for hospital-type hospice continued tx. Qualifiers: Pancreatic malignancy location: head of pancreas Qualified Code(s): C25.0 - Malignant neoplasm of head of pancreas (8) Septic shock Impression: Very poor prognosis, at this point. Evidence of MODS/MOF. enterococcus and serratia bacteremia likely sec to biliary source from prior stent and instrumentation. The family was told that patient has poor px and high mortality rate.
[2018-04-08] MEDS ORDERED: SODIUM CHLORIDE FLUSH 0.9% 10 ML SYRINGE ONE (18:48)
[2018-04-09] MEDS: HYDROmorphone 1 MG/ML CARPUJECT IVP PRN ×3 (00:50→08:59)
[2018-04-09] MEDS: SODIUM CHLORIDE FLUSH 0.9% 10 ML SYRINGE IVP SCH ×2 (00:50→05:36)
[2018-04-09] MEDS: SODIUM CHLORIDE FLUSH 0.9% 10 ML SYRINGE IVP PRN (08:59)
[2018-04-09 09:17] VITALS: BP 52/20
--- NOTE | 2018-04-09 09:28 | PROVIDER PROGRESS NOTE ---
Subjective - Prog Note Date Prog Note Date: 04/09/18 Prog Note Time: 09:25 - Subjective Pt reports feeling: Worse Subjective: Patient remains obtunded Current Medications - Current Medications Current Medications: Active Medications Atropine Sulfate (Isopto Atropine 1% Ophth Drops) 1 - 4 drops SL Q2H PRN PRN Reason: Excessive secretions Fentanyl (Duragesic) 1 patch TOP Q[facility]H [facility] Last Admin: 04/08/18 13:19 Dose: 1 patch Fentanyl (Duragesic) 1 patch TOP Q72H [facility] Last Admin: 04/08/18 13:20 Dose: 1 patch Glycopyrrolate (Robinul) 0.2 mg SUBQ Q4H PRN PRN Reason: Excessive secretions Haloperidol (Haldol Inj) 0.5 mg IVP Q6H PRN PRN Reason: Nausea / Vomiting Haloperidol (Haldol Inj) 1 mg IVP Q2H PRN PRN Reason: Agitation Hydromorphone HCl (Dilaudid Inj Carp) 2 mg IVP Q2HR PRN PRN Reason: PAIN Last Admin: 04/09/18 08:59 Dose: 2 mg Lorazepam (Ativan Inj (Vial)) 1 mg IVP Q6H PRN PRN Reason: Anxiety/Agitation Morphine Sulfate (Morphine (Carpuject)) 2 mg IVP Q1HR PRN PRN Reason: PAIN Prochlorperazine Edisylate (Compazine Inj) 10 mg IVP Q6HR PRN PRN Reason: Nausea / Vomiting Scopolamine HBr (Transderm-Scop) 1 patch TOP Q3D [facility] Last Admin: 04/08/18 14:16 Dose: 1 patch Sodium Chloride (Normal Saline Flush 0.9%) 10 ml IVP Q8HR [facility] Last Admin: 04/09/18 05:36 Dose: 10 ml Metoprolol Tartrate 100 mg PO BID 10/05/15 Hydrocodone/Acetaminophen [Hydrocodone-Acetamin 5-325 mg] 04/05/18 Pantoprazole Sodium [Protonix] 40 mg PO BID 04/05/18 Tamsulosin HCl [Flomax] 0.4 mg PO DAILY 04/05/18 Objective - Vital Signs/Intake & Output Reviewed Vital Signs: Yes Vital Signs: Vital Signs x48h Temp Resp BP Pulse Ox 04/09/18 09:00 36.4 C L 22 52/20 L 90 L Intake & Output: Intake & Output 04/06/18 04/07/18 04/08/18 04/09/18 23:59 23:59 23:59 23:59 Intake Total 4400 Output Total 375 210 720 30 Balance 4025 -210 -720 -30 - Objective General Appearance: positive: Other (obtunded) Eyes Bilateral: positive: Other (brisk pupillary reflex bilaterally) ENT: positive: Dry mucous membranes Neck: positive: No JVD, Trachea midline Respiratory: positive: Rhonchi, Other (apneic and mouth breathing decrease BS bilaterally) Cardiovascular: positive: Regular rate & rhythm, No murmur, Tachycardia Abdomen: positive: Tenderness (grimaced on palpation) Skin: positive: Pallor Extremities: positive: No pedal edema - Lab Results Fish Bones: 04/06/18 04:29 04/06/18 04:29 Other Labs: Lab Results x24hrs 04/05/18 Range/Units 11:40 Crossmatch IS Only See Detail ABX Reporting Has patient been on IV antibiotics over the past 48 hours?: No Assessment/Plan - Problem List (1) Septic shock Impression: Very poor prognosis, at this point. Evidence of MODS/MOF. enterococcus and serratia bacteremia likely sec to biliary source from prior stent and instrumentation. The family was told that patient has poor px and high mortality rate. (2) Obtunded Impression: sec to septic shock with multi-organ failure. To continue with current comfort care measures. Hospice referral made but likely will pass away here. (3) Comfort measures only status Impression: Patient's family in touch with and have decided to stay at [facility]. Hospice referral was made however patient due to imminent would defer on admission as this would require moving patient elsewhere and family is ok with continuation of CCM in hospital until he passes. (4) Ileus Impression: Continue with Fentanyl patch 75 mcg TD q 72 hrs. (5) Pancreatic cancer Impression: With coexistent acute cholecystitis, bactermia. Comfort care measures to continue. poor prognosis and will be referred to hospice, [facility] does not have a bed and likely to defer for hospital-type hospice continued tx. Qualifiers: Pancreatic malignancy location: head of pancreas Qualified Code(s): C25.0 - Malignant neoplasm of head of pancreas
--- NOTE | 2018-04-09 12:04 | DISCHARGE SUMMARY ---
"Discharge Summary Admit Date: 04/05/18 ( Summary ) Discharge Date: 04/09/18 Discharging Provider: Dr. Werner Primary Care Provider: Dr. Bulmaro Kaiser Code Status: Do Not Attempt Resuscitation Condition at Discharge: Critical Discharge Disposition: 20 Discharge Facility Name: Home - DIAGNOSES Discharge Diagnoses with Status of Each Condition: (1) Septic shock---critical Impression: Very poor prognosis, at this point. Evidence of MODS/MOF. enterococcus and serratia bacteremia likely sec to biliary source from prior stent and instrumentation. The family was told that patient has poor px and high mortality rate. (2) Obtunded--poor px Impression: sec to septic shock with multi-organ failure. To continue with current comfort care measures. Hospice referral made but likely will pass away here. (3) Comfort measures only status---sec to above. Impression: Patient's family in touch with SW and have decided to stay at [facility]. Hospice referral was made however patient due to imminent would defer on admission as this would require moving patient elsewhere and family is ok with continuation of CCM in hospital until he passes. (4) Ileus--sec to ac cholecystis and #1. Critical Impression: Continue with Fentanyl patch 75 mcg TD q 72 hrs. (5) Pancreatic cancer, stable Impression: With coexistent acute cholecystitis, bactermia. Comfort care measures to continue. poor prognosis and will be referred to hospice, [facility] does not have a bed and likely to defer for hospital-type hospice continued tx. Qualifiers: Pancreatic malignancy location: head of pancreas Qualified Code(s): C25.0 - Malignant neoplasm of head of pancreas 6) Acute Cholecystitis; Critical, not a surgical candidate and contributing to ileus, abd pain and shock. 7) CAMILA with MODS/MOF sec to #1. CCM measures started early. 8) Bactermia. Enterococcus and serratia bacteremia likely sec to biliary source from prior stent and instrumentation. 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 During procedure he was found to have a mass of pancreatic head, whcih was biopsy confirmed Pancreatic Cancer. He was referred to hem/onc outpatient followup but never made it as his PCP told him he had 6 months to live, which made him very depressed, had sob, incontinent of urine prompting him to seek further eval in ER. He was told he had gastritis and a hi atal hernia and discharged. Later returning with nausea, emesis, severe abd pain, and was found to be in septic shock, CT abd/pelvis showed acute cholecystitis. Family was offered to return to [facility] and they declined. - CONSULTS | PROCEDURES Consultations: hospice, tray delivery aide, Procedures: none - HOSPITAL COURSE Hospital Course: Patient admitted for Septic shock and found to have enterococcus and serratia marcescens bactermia with coexistign ileus on AXR, was made comfort care by family request. Severe CAMILA, anemia and multi-organ failure was seen clinically and on labs. Patient from complications of septic shock with MODS. Patient time of : 11:15 am. - ALLERGIES Allergies/Adverse Reactions: Allergies Allergy/AdvReac Type Severity Reaction Status Date / Time Penicillins AdvReac Nausea Verified 04/05/18 10:10 - MEDICATIONS Home Medications: Ambulatory Orders Medication Instructions Recorded Confirmed Metoprolol Tartrate 100 mg PO BID 10/05/15 04/05/18 Ondansetron HCl [Zofran] 4 mg PO Q6H PRN #20 tablet 04/02/18 Hydrocodone/Acetaminophen 04/05/18 [Hydrocodone-Acetamin 5-325 mg] Pantoprazole Sodium [Protonix] 40 mg PO BID 04/05/18 04/05/18 Tamsulosin HCl [Flomax] 0.4 mg PO DAILY 04/05/18 04/05/18 - PHYSICAL EXAM AT DISCHARGE General Appearance: positive: Other () Cardiovascular: positive: Other (no pulse ) Peripheral Pulses: positive: 0 Neurologic/Psychiatric: positive: Other (no response ) - LABS Result Diagrams: 04/06/18 04:29 04/06/18 04:29 - DIAGNOSTIC IMAGING Diagnostic Imaging Results: Final report reviewed - FOLLOW UP Follow Up: Body to be released to [facility] in [place] - TIME SPENT Time Spent in Discharge (Minutes): 35"
== END 2018-04-09 11:15 | disposition expired | DRG 919 ==
LOC: EDUNIT# → ED 10:00 → ICU 15:04
PROVIDERS: ADMIT Internal Medicine; ATTEND Family Medicine
DX: A41.9 Sepsis, unspecified organism (principal); R65.21 Severe sepsis with septic shock; T85.79XA Infection and inflammatory reaction due to other internal prosthetic devices, implants and grafts, initial encounter; D62 Acute posthemorrhagic anemia; C25.9 Malignant neoplasm of pancreas, unspecified; I10 Essential (primary) hypertension; Z96.89 Presence of other specified functional implants; T81.12XA Postprocedural septic shock, initial encounter; A41.53 Sepsis due to Serratia; A41.81 Sepsis due to Enterococcus; G93.41 Metabolic encephalopathy; T81.44XA Sepsis following a procedure, initial encounter; K80.00 Calculus of gallbladder with acute cholecystitis without obstruction; C25.0 Malignant neoplasm of head of pancreas; N17.9 Acute kidney failure, unspecified; K56.7 Ileus, unspecified; D50.0 Iron deficiency anemia secondary to blood loss (chronic); Y83.1 Surgical operation with implant of artificial internal device as the cause of abnormal reaction of the patient, or of later complication, without mention of misadventure at the time of the procedure; E86.0 Dehydration; R06.81 Apnea, not elsewhere classified; I12.9 Hypertensive chronic kidney disease with stage 1 through stage 4 chronic kidney disease, or unspecified chronic kidney disease; N18.9 Chronic kidney disease, unspecified; F32.9 Major depressive disorder, single episode, unspecified; H91.90 Unspecified hearing loss, unspecified ear; E66.9 Obesity, unspecified; Z51.5 Encounter for palliative care; Z66 Do not resuscitate; Z79.899 Other long term (current) drug therapy; Z68.33 Body mass index [BMI] 33.0-33.9, adult; Z87.19 Personal history of other diseases of the digestive system
CPT/HCPCS: 36415; 36430; 71045; 74022; 74176; 80053; 81001; 81003; 81599; 82330; 83605; 83690; 83735; 84100; 84484; 85025; 85610; 85651; 86850; 86900; 86901; 86920; 87040; 87077; 87086; 87150; 87181; 93306; 96361; 96365; 96367; 96368; 99284; 99285